=== PATIENT | female | born 1965 | race Caucasian/White ===

== ENCOUNTER 2020-02-22 14:27 | Emergency (ER) | payer OTHER, SELFPAY ==
[2020-02-22 14:28] VITALS: BP 121/99; PULSE 80; RESP 16; TEMP 37; O2SAT 97; BMI 29.0
[2020-02-22 14:31] VITALS: BP 121/99; PULSE 80; RESP 16; TEMP 37; O2SAT 97
--- NOTE | 2020-02-22 15:05 | CT_ITS ---
STUDY: CT ABDOMEN AND PELVIS WITH CONTRAST REASON FOR EXAM: Female, 54 years old. RECTAL BLEEDING TODAY, BLOOD CLOTS, NEW COUGH, FEVER. RADIATION DOSAGE (If Supplied By Facility): CTDIvol = ( 15.45 ) mGy, DLP = ( 882.32 ) mGycm TECHNIQUE: Transaxial images were obtained from the dome of the diaphragm to the symphysis pubis with oral contrast. Oral and amp; IV Gastrografin and amp; 100mL Isovue-300 was administered. Sagittal and coronal images were reconstructed. Individualized dose optimization techniques were used for this CT. COMPARISON: Prior abdomen and pelvic CT exam of 07/07/2016 FINDINGS: The visualized lung bases are unremarkable. The visualized portions of the heart are within normal limits. Normal liver. Normal gallbladder and extrahepatic biliary system. Normal spleen. Normal pancreas. Normal bilateral adrenal glands. Multiple parapelvic cysts and one cortical cyst of the right kidney stable from prior exam. Otherwise normal right kidney without hydronephrosis or stones. Multiple stable parapelvic cysts of the left kidney. Otherwise normal left kidney without hydronephrosis or stones. Normal visualized stomach. Normal small intestine. Status post right hemicolectomy with an unremarkable ileocolic anastomosis. Mild diverticulosis of the left and distal colon without evidence of acute diverticulitis. Minimal calcified plaque of the aorta. Normal inferior vena cava. Normal retroperitoneum. Normal urinary bladder. Status post hysterectomy with no pelvic mass or free fluid of the pelvis. Normal abdominal wall. Normal osseous structures. CT/Abdomen/Pelvis WITH Contrast IMPRESSION: No acute bowel findings. Negative for evidence of perforation, obstruction or inflammatory changes. Negative for mass density. She is status post a right hemicolectomy with an unremarkable ileocolic anastomosis. Mild diverticulosis of the left and distal colon. Otherwise, no identified bleeding site. Status post hysterectomy with no pelvic mass or free fluid. Stable cortical and simple renal cysts. No acute renal or bladder findings. Unremarkable liver, spleen and pancreas with a nondistended gallbladder. Electronically Signed: Sara Lau MD at 17:00 EST , Service support ,
--- NOTE | 2020-02-22 15:08 | ED.DCSUM_ITS ---
- ER Visit Summary Date of Service: 02/22/20 Chief Complaint: Rectal bleeding History of Present Illness: The patient is a 54 F who presents with rectal bleeding that began today. Patient states she had 3 bowel movements today. Patient states there was blood mixed with the first 2. Patient states the third bowel movement was just blood. Patient does admit to some pain with her bowel movements. Patient states the blood was red. Patient admits to nausea but denies any vomiting. Patient admits to some diffuse cramping abdominal pain. Patient states this waxes and wanes. Patient denies any dysuria or hematuria. Patient does have a history of colon cancer and diverticulitis. Physical Examination: Vital signs are stable. Patient is afebrile. Patient is in no acute distress. Oral mucosa is pink and moist. Neck is supple. Trachea is midline. There is no JVD noted. Heart was regular rate and rhythm. Lungs are clear and equal bilaterally. Abdomen is soft. Bowel sounds are normal. There is no tenderness. There is no rebound or guarding noted. Rectal exam radames wed good sphincter tone. There is brown stool. There is some tenderness on rectal exam. There are no masses palpated. Skin is warm dry. Cranial nerves II through XII are intact. There are no focal motor or sensory deficits noted. Extremities are intact. There is no calf tenderness or edema. Test Results: CBC shows normal hemoglobin and hematocrit. Comprehensive metab olic profile was within normal limits. Lipase was normal. Stool was Hemoccult positive. CT scan of the abdomen pelvis was obtained and shows no acute process. There are no masses palpated. There is some mild diverticulosis of the distal colon. There is no bleeding site identified. This was interpreted by the radiologist and reviewed by myself.. Emergency Department Course and Treatment: Patient is feeling better on reevaluation. Patient was advised of her findings. Patient was advised that this may be internal hemorrhoids due to the tenderness on her rectal exam. Patient was given a prescription for Anusol HC suppositories. Patient was instructed to follow-up with her primary care physician in 5 to 7 days. Patient understood and was agreeable with the plan. All questions were answered. Disposition: Discharge home Impression: 1. Lower gastrointestinal bleeding This note was generated with [employer] dictation software. It may contain incorrect words, spelling, and punctuation that were not noted in review of the chart prior to signing ED Disposition - Plan for ED Patient: Disposition: Home or Assisted Living Diagnosis: Lower gastrointestinal bleeding Instructions: ED Hemorrhoids, ED Lower GI Bleeding (Stable) Prescriptions: Hydrocortisone [Anusol Hc] 25 mg RECTAL DAILY PRN PRN #10 suppos. PRN Reason: Hemorrhoids Prescription Printed Referrals: Care Physician,No Primary [NON-STAFF] - 3-5 Days
[2020-02-22] MEDS: 0.9% Normal Saline 1,000 ML 1000 ML IV (15:24)
[2020-02-22] MEDS: Ondansetron 4 MG/2 ML Vial IV (15:24)
[2020-02-22 15:40] LABS: Absolute Neutrophil Count 2.8 X10^3/uL (2.0-7.7); Basophil# 0.02 X10^3/uL; Basophil% 0.5 % (0-1); Eosinophil# 0.04 X10^3/uL; Eosinophils% 0.9 % (0-5); Hematocrit 42.8 % (37-47); Hemoglobin 13.9 g/dL (12.0-15.0); Lymphocyte % 20.9 % (19-41); Mean Corp Hgb Conc 32.5 g/dL (32-36); Mean Corpuscular Hgb 31.5 pg (27.0-32.0); Mean Corpuscular Volume 97.1 fL (81-99); Mean Platelet Vol. 10.2 fl (6.2-12.0); Monocyte# 0.56 X10^3/uL; NRBC Flagged by Analyzer 0 % (0-5); Neutrophil # 2.78 X10^3/uL (2.7-7.7); Neutrophil % 64.5 % (47-70); Platelet Count 219 K/mm3 (150-450); RBC Distribution Width CV 12.8 % (11.6-14.6); RBC Distribution Width SD 45.7 fl (35.1-43.9); Red Blood Count 4.41 M/mm3 (4.2-5.4); White Blood Count 4.3 K/mm3 (4.4-11.0)
[2020-02-22 15:49] VITALS: BP 152/93; PULSE 60; RESP 18; TEMP 36.2; O2SAT 99
[2020-02-22 15:50] LABS: ALB/GLOB Ratio 1.2 RATIO (0.9-2.4); AST(SGOT) 27 U/L (15-37); Alanine Aminotransfer ALT/SGPT 42 U/L (13-56); Alkaline Phosphatase 90 U/L (45-117); Anion Gap 4 (5-15); BUN 11 mg/dL (7-18); BUN/Creat Ratio 16.3 RATIO (10-20); Chloride 110 mmol/L (98-107); Creatinine, Serum 0.67 mg/dL (0.55-1.02); EST Glomerular Filtration Rate 96 mL/min (>60); Est Glom Filt Rate - Afr Amer 116 mL/min (>60); Estimated Creatinine Clearance 70.75 ml/min; Globulin 3.3 g/dL (2.2-4.2); Glucose 88 mg/dL (74-106); Lipase 130 U/L (73-393); Protein, Total 7.3 g/dL (6.4-8.2); Sodium Level 142 mmol/L (136-145)
[2020-02-22 17:01] VITALS: BP 129/84; PULSE 63; RESP 18; TEMP 36.8; O2SAT 98
[2020-02-22 17:44] VITALS: BP 123/65; PULSE 65; RESP 15; O2SAT 100
== END 2020-02-22 17:45 | disposition home or self-care (01) ==
PROVIDERS: Emergency Provider Emergency Medicine; PCP Family Medicine
DX: K92.2 Gastrointestinal hemorrhage, unspecified (principal); K21.9 Gastro-esophageal reflux disease without esophagitis; E78.00 Pure hypercholesterolemia, unspecified; Z85.038 Personal history of other malignant neoplasm of large intestine
CPT/HCPCS: 74177; 80053; 82274; 83690; 85025; 96374; 99283; J7030; Q9967; A4216; J2405

== ENCOUNTER 2020-03-26 07:43 | Day surgery (SDC) | payer OTHER, SELFPAY ==
[2020-03-15 13:36] VITALS: BMI 28.5
--- NOTE | 2020-03-26 | COLBX_PTH ---
PATIENT: JACEY RAVI LOC: EN U#:[id number] AGE/SX: 54/F ROOM: RE03/26/[address]: Dr. Joslyn Lockhart MD : 1965 BED: DIS: 03/26/2020 SPEC #: [id number] RECD: 03/26/20 11:02 STATUS: TESS JITENDRA #: [id number] BLANCA: 03/26/20 00:[address]: Joslyn Lockhart DEPT: SURGICAL PATHOLOGY RECD BY: Fidel Durbin ENTERED: 03/26/20 11:02 SP TYPE: COLON BX OTHR DR: Dr. Janny Durbin DO Tissues: COLON BIOPSY Procedures: Surgery Specimen Level IV HEADER OPERATION: Colonoscopy (MAC) PRE-OP DIAGNOSIS: Bright red blood per rectum; history of colon cancer; history of partial colectomy; GERD TISSUE SUBMITTED: Random colonic biopsies MICROSCOPIC DIAGNOSIS Colon, random biopsy: No pathologic change. AM:manoj 03/27/2020 MICROSCOPIC DESCRIPTION Slides are reviewed. GROSS DESCRIPTION Received in fixative is one container labeled with the patient's name and designated random colon biopsy. The specimen consists of multiple irregular fragments of light tse soft tissue that in aggregate measure 2 x 1 x 0.1 cm. The specimen is totally submitted in one cassette. / AM:manoj 03/26/20 TC:5 CPT: 53254
--- NOTE | 2020-03-26 06:00 | HP_ITS ---
ADDENDUM by Dr. Joslyn Lockhart MD on 03/15/20 at 1437 Addendum entered and electronically signed by Joslyn Lockhart MD 03/15/20 14:36: COVID (Procedure Consent) Procedure Criteria: Yes Elective The surgeon/proceduralist and patient have discussed in detail the risk of exposure to and/or potential harm posed by the COVID-19 virus with having a surgery/procedure at this time versus the risk of delaying the surgery/procedure. It is not possible to know either the risk of delaying the surgery or procedure or chance of getting an infection with perfect accuracy, but a joint decision was made between the patient and the surgeon/proceduralist to proceed at this time with the scheduled surgery/procedure as indicated on the consent form. Intake Allergies acetaminophen [From Darvocet-N 100] Allergy (Verified 03/15/20 13:37) Itching hydrocodone Allergy (Verified 03/15/20 13:37) Itching latex Allergy (Verified 03/15/20 13:37) Hives meperidine [From Demerol] Allergy (Verified 03/15/20 13:37) Itching morphine Allergy (Verified 03/15/20 13:37) Itching oxycodone [From Percocet] Allergy (Verified 03/15/20 13:37) Itching Penicillins Allergy (Verified 03/15/20 13:37) Itching propoxyphene [From Darvocet-N 100] Allergy (Verified 03/15/20 13:37) Itching vancomycin Allergy (Verified 03/15/20 13:37) Other Medications Pantoprazole Sodium [Protonix] 20 mg PO DAILY 07/07/16 [History Confirmed 03/15/20] Hydrocortisone [Anusol Hc] 25 mg RECTAL DAILY PRN PRN #10 suppos. 02/22/20 [Rx Confirmed 03/15/20] Lorazepam 0.5 mg PO DAILY PRN 02/22/20 [History Confirmed 03/15/20] Pravastatin Sodium 40 mg PO DAILY 02/22/20 [History Confirmed 03/15/20] bupropion HCl 150 mg 24 hr tablet, extended release 150 mg PO ONCE tab 03/15/20 [History Confirmed 03/15/20] Assessment & Plan Problems 1. BRBPR (bright red blood per rectum) K62.5 2. History of colon cancer Z85.038 3. History of partial colectomy Z90.49 4. Gastroesophageal reflux disease K21.9 Plan - Dr. Joslyn Lockhart MD Patient states she had an EGD about 5 years ago prior to going on reflux medication states she been on Protonix for about a year and a half 40 mg p.o. daily is working well for her she denies any symptoms. I have discussed the above with the patient. I have offered the patient colonoscopy for evaluation. I have explained the risks/benefits of the procedure and described the procedure. I have discussed the risks with the patient, including but not limited to: infection, bleeding, perforation of the GI tract requiring emergency surgery, inability to complete the procedure, injury to any internal organs, complications of anesthesia, etc. - the patient understands and agrees to proceed. I have answered all the patient's questions to the patient's satisfaction and the patient has no further questions. The patient has been given instructions for the colon cleansing preparation. 1 day of clears, MiraLAX Dulcolax split prep. Joslyn Lockhart M.D. Pager: [phone] [facility] [address] [place] [address], [address] [place] [address] Office: [phone] Orders Orders: Colonoscopy Today Plan Detail Follow Up We will schedule colonoscopy for March 21 03/15/20 [id number] <Electronically signed by Joslyn Teran am, MD> Date _ Joslyn Lockhart MD cc: Dr. Janny Durbin, DO ~* Signed Intake Vital Signs 03/15/20 Height 5 ft 1 in 03/15/20 Weight: 151 lb 03/15/20 BMI 28.5 03/15/20 BP 116/80 03/15/20 Blood Pressure Location Rt brachial 03/15/20 Position Sitting 03/15/20 Respiration 16 03/15/20 Pulse 59 L 03/15/20 Pulse Source Monitor 03/15/20 Temp 97.9 F 03/15/20 Temp Source Temporal 03/15/20 Pulse Oximetry (%) 97 03/15/20 Oxygen Delivery Method room air Intake Visit Reasons: C-Scope Consult rectal bleeding Night Custodian Required: No Is patient in pain?: No Allergies acetaminophen [From Darvocet-N 100] Allergy (Verified 03/15/20 13:37) Itching hydrocodone Allergy (Verified 03/15/20 13:37) Itching latex Allergy (Verified 03/15/20 13:37) Hives meperidine [From Demerol] Allergy (Verified 03/15/20 13:37) Itching morphine Allergy (Verified 03/15/20 13:37) Itching oxycodone [From Percocet] Allergy (Verified 03/15/20 13:37) Itching Penicillins Allergy (Verified 03/15/20 13:37) Itching propoxyphene [From Darvocet-N 100] Allergy (Verified 03/15/20 13:37) Itching vancomycin Allergy (Verified 03/15/20 13:37) Other Medications Pantoprazole Sodium [Protonix] 20 mg PO DAILY 07/07/16 [History Confirmed 03/15/20] Hydrocortisone [Anusol Hc] 25 mg RECTAL DAILY PRN PRN #10 suppos. 02/22/20 [Rx Confirmed 03/15/20] Lorazepam 0.5 mg PO DAILY PRN 02/22/20 [History Confirmed 03/15/20] Pravastatin Sodium 40 mg PO DAILY 02/22/20 [History Confirmed 03/15/20] bupropion HCl 150 mg 24 hr tablet, extended release 150 mg PO ONCE tab 03/15/20 [History Confirmed 03/15/20] [facility] Medical History (Updated 03/15/20 @ 13:35 by Glendy Ennis) Pancreatitis (Acute) Blood in stool (Acute) Abdominal pain (Acute) Heart murmur (Acute) Numbness and tingling (Acute) Arthritis (Acute) Hemorrhoids (Acute) Diverticulosis (Acute) Diarrhea (Acute) IBS (irritable bowel syndrome) (Acute) Hiatal hernia (Acute) History of colon cancer (Acute) Hyperlipidemia (Acute) Anxiety (Acute) GERD (gastroesophageal reflux disease) (Acute) Surgical History (Updated 03/15/20 @ 13:35 by Glendy Ennis) History of surgery on wrist (Acute) Hx of shoulder surgery (Acute) Hx of thumb surgery (Acute) Hx of colonoscopy (Acute) Hx of fusion of cervical spine (Acute) History of partial colectomy (Acute) Hx of hysterectomy (Acute) Family History Father Colon cancer Social History (Updated 03/15/20 @ 13:[address] Joslyn Lockhart MD) Smoking Status: Current some day smoker second hand exposure: No alcohol intake: current alcohol intake frequency: a few times a month substance use type: does not use caffeine: Yes what type of physical activity do you participate in: none frequency: does not exercise HPI HPI HPI: JACEY RAVI, is a 54 F who presents to the office today for HPI HPI HPI: JACEY RAVI, is a 54 F who presents to the office today for colonoscopy due to bright red blood per rectum. Patient does have past medical history for right hemicolectomy due to colon cancer at age 44 done in [place]. Patient states her last colonoscopy was about a year ago at [facility] by Dr. Hong however on patient came to the ER due to bright red blood per rectum states she had about half a cup initially and then 3 tablespoons of blood the next episode which did include some clots. Patient states since then she is only had occasional small amounts maybe 1 or 2 episodes. Patient denies any abdominal pain or any pain with bowel movements. Patient does have IBS and has diarrhea daily. Patient will take Imodium as needed. Patient does have history of reflux and is on Protonix 40 mg p.o. daily has no signs or symptoms when on medication she has been on it for about a 1-1/2 years and had an EGD about 5 years ago prior to starting medication. ROS General General: Yes colon cancer; no weight change, appetite, fatigue, breast cancer or weakness HEENT HEENT: No difficulty swallowing, eye injury, eye surgery, swollen glands or hoarseness Endo Endocrine: No thyroid disease, diabetes mellitus, thyroid cancer, Hair loss, heat intolerance or cold intolerance Skin Skin: Yes changing moles; no rash Musc Musculoskeletal: Yes arthritis; no back problems, rheumatoid arthritis, gout or joint pain Cardio Cardiovascular: Yes high blood pressure; no pacemaker, heart disease, atrial fibrillation, heart attack, heart stent, palpitations, shortness of breat with exertion or chest pain Psych Psychiatric: Yes anxiety; no depression or hearing voices Neuro Neurologic: No weakness Exam Const General: cooperative, comfortable, no acute distress, well developed Resp Effort & Inspection: normal respiratory effort Cardio Rate: regular rate GI Inspection: non-distended, scar (Previous incisions from laparoscopic right hemicolectomy well-healed) Palpation: soft, no guarding, nontender Rectal Exam: other (Deferred) Assessment & Plan Problems 1. BRBPR (bright red blood per rectum) K62.5 2. History of colon cancer Z85.038 3. History of partial colectomy Z90.49 4. Gastroesophageal reflux disease K21.9 Plan Patient states she had an EGD about 5 years ago prior to going on reflux medication states she been on Protonix for about a year and a half 40 mg p.o. daily is working well for her she denies any symptoms. I have discussed the above with the patient. I have offered the patient colonoscopy for evaluation. I have explained the risks/benefits of the procedure and described the procedure. I have discussed the risks with the patient, including but not limited to: infection, bleeding, perforation of the GI tract requiring emergency surgery, inability to complete the procedure, injury to any internal organs, complications of anesthesia, etc. - the patient understands and agrees to proceed. I have answered all the patient's questions to the patient's satisfaction and the patient has no further questions. The patient has been given instructions for the colon cleansing preparation. 1 day of clears, MiraLAX Dulcolax split prep. Joslyn Lockhart M.D. Pager: [phone] [facility] [address] [place] [address], [address] [place] [address] Office: [phone] Orders Orders: Colonoscopy Today Plan Detail Follow Up We will schedule colonoscopy for March 21 Coding Level of Care Code Off vis,new,level 3 Diagnoses BRBPR (bright red blood per rectum) K62.5 History of colon cancer Z85.038 History of partial colectomy Z90.49 Gastroesophageal reflux disease K21.9 I have examined the patient the following changes are noted: Patient did have some bright red blood on the toilet paper and some in the toilet on last it did improve. Since then patient has not had any further episodes. Patient does state that she is had at one time diarrhea for about a month and that usually her stools not formed and quite loose she would be interested in getting random biopsies to look for any possible colitis.
[2020-03-26 08:05] VITALS: BP 137/72; PULSE 72; RESP 16; TEMP 36.6; O2SAT 98; BMI 28.3
[2020-03-26 09:10] VITALS: BP 118/74; BP 137/72; PULSE 64; RESP 16; TEMP 36.4; O2SAT 99
[2020-03-26 09:15] VITALS: BP 130/70; BP 137/72; PULSE 62; RESP 16; O2SAT 98
--- NOTE | 2020-03-26 09:18 | OP.CCLET_ITS ---
03/26/2020 Janny Durbin Re : Colonoscopy procedure for Barbara Barnesr Ramakrishna This procedure was performed on Thursday, March 26, 2020. My impressions and recommendations are as follows: Impressions : - Hemorrhoids found on perianal exam. - Diverticulosis in the sigmoid colon. - Non-bleeding internal hemorrhoids. - Biopsies were taken with a cold forceps from the transverse colon, descending colon, sigmoid colon and rectum for evaluation of microscopic colitis. Recommendations : - Discharge patient to home. - High fiber diet. - Continue present medications. - Await pathology results. - Repeat colonoscopy in 5 years for surveillance based on personal history of colon cancer. My findings are described in the full procedure note, which is enclosed. If I can be of further assistance, please feel free to contact me at Doctor phone number(s): , Work: . Sincerely, MD Joslyn Dupont MD 03/26/2020 9:17:24 AM This report has been signed electronically.
--- NOTE | 2020-03-26 09:18 | OP.COLON_ITS ---
Patient Name: Barbara Bingham Procedure Date: 03/26/2020 8:33 AM Date of : 1965 Age: 54 Procedure: Colonoscopy Indications: Rectal bleeding, Personal history of malignant neoplasm of the colon, Previous bx for collagenous colitis- not tx, still has loose stools Providers: Joslyn Lockhart MD Referring MD: Janny Durbin Medicines: Monitored Anesthesia Care Patient Profile: This is a 54 year old female. Last Colonoscopy: 2018. Complications: No immediate complications. Procedure: Pre-Anesthesia Assessment: - Prior to the procedure, a History and Physical was performed, and patient medications and allergies were reviewed. The patient's tolerance of previous anesthesia was also reviewed. The risks and benefits of the procedure and the sedation options and risks were discussed with the patient. All questions were answered, and informed consent was obtained. Prior Anticoagulants: The patient has taken no previous anticoagulant or antiplatelet agents. ASA Grade Assessment: Per anesthesia. After reviewing the risks and benefits, the patient was deemed in satisfactory condition to undergo the procedure. After I obtained informed consent, the scope was passed under direct vision. Throughout the procedure, the patient's blood pressure, pulse, and oxygen saturations were monitored continuously. The pediatric colonoscope was introduced through the anus and advanced to the ileocolonic anastomosis. The colonoscopy was performed without difficulty. The patient tolerated the procedure well. The quality of the bowel preparation was good. Scope In: 8:47:41 AM Scope Withdrawal Time 0 hours 10 minutes 4 seconds Scope Out: 9:03:49 AM Total Procedure Duration Time 0 hours 16 minutes 8 seconds Findings: Hemorrhoids were found on perianal exam. A few small-mouthed diverticula were found in the sigmoid colon. Non-bleeding internal hemorrhoids were found. The hemorrhoids were Grade I (internal hemorrhoids that do not prolapse). Biopsies for histology were taken with a cold forceps from the transverse colon, descending colon, sigmoid colon and rectum for evaluation of microscopic colitis. Impression: - Hemorrhoids found on perianal exam. - Diverticulosis in the sigmoid colon. - Non-bleeding internal hemorrhoids. - Biopsies were taken with a cold forceps from the transverse colon, descending colon, sigmoid colon and rectum for evaluation of microscopic colitis. Recommendation: - Discharge patient to home. - High fiber diet. - Continue present medications. - Await pathology results. - Repeat colonoscopy in 5 years for surveillance based on personal history of colon cancer. Procedure Code(s): --- Professional --- 36264, Colonoscopy, flexible; with biopsy, single or multiple Diagnosis Code(s): --- Professional --- K64.0, First degree hemorrhoids K62.5, Hemorrhage of anus and rectum Z85.038, Personal history of other malignant neoplasm of large intestine K57.30, Diverticulosis of large intestine without perforation or abscess without bleeding CPT copyright 2017 [employer]. All rights reserved. The codes documented in this report are preliminary and upon twx operator review may be revised to meet current compliance requirements. MD Joslyn Dupont MD 03/26/2020 9:17:24 AM This report has been signed electronically. Number of Addenda: 0 Note Initiated On: 03/26/2020 8:33 AM
[2020-03-26 09:20] VITALS: BP 117/72; BP 137/72; PULSE 65; RESP 16; O2SAT 99
[2020-03-26 09:25] VITALS: BP 113/83; BP 137/72; PULSE 63; RESP 16; TEMP 36.4; O2SAT 100
[2020-03-26 09:43] VITALS: BP 137/72
== END 2020-03-26 10:03 | disposition home or self-care (01) ==
LOC: EN 07:43 → AC 07:43
PROVIDERS: PCP Family Medicine; Referring Provider Family Medicine; Visit Provider Surgery
PROC: 0DJD8ZZ Inspection of Lower Intestinal Tract, Via Natural or Artificial Opening Endoscopic (ICD-10-PCS; CPT 45378; principal; 2020-03-26 08:40)
DX: K62.9 Disease of anus and rectum, unspecified (principal); K21.9 Gastro-esophageal reflux disease without esophagitis; M19.90 Unspecified osteoarthritis, unspecified site; K58.0 Irritable bowel syndrome with diarrhea; K44.9 Diaphragmatic hernia without obstruction or gangrene; E78.5 Hyperlipidemia, unspecified; F41.9 Anxiety disorder, unspecified; Z79.899 Other long term (current) drug therapy; Z20.828 Contact with and (suspected) exposure to other viral communicable diseases; Z85.038 Personal history of other malignant neoplasm of large intestine; Z90.49 Acquired absence of other specified parts of digestive tract; K64.0 First degree hemorrhoids; K57.30 Diverticulosis of large intestine without perforation or abscess without bleeding; Z87.891 Personal history of nicotine dependence
CPT/HCPCS: 45380; 87426; 88305; C9803; J7120

== ENCOUNTER 2022-04-16 07:07 | Day surgery (SDC) | payer OTHER, SELFPAY ==
[2022-04-16] VITALS (9 sets, daily range): BP systolic 75–111; BP diastolic 39–75; PULSE 64–80; RESP 15–16; TEMP 36.4–37; O2SAT 94–99; BMI 28.6
[2022-04-16] MEDS: Lactated Ringers 1,000 ML 15 ML IV (07:33)
--- NOTE | 2022-04-16 07:58 | H&P.OPEN ---
HPI - General HPI Narrative JACEY RAVI, is a 56 F who presents for EGD and colonoscopy. Patient's colonoscopy due to abdominal pain/discomfort after eating, occasional bright red blood per rectum, personal history of colon cancer age 44 status post right hemicolectomy. Patient also has reflux on Protonix daily and again is having abdominal discomfort after eating patient states that the medication works fairly well however she will notice if she misses it. OFFice note 03/13/22 HPI HPI: 56 y/o presents due to change bowel habits.? Pt states she has loose BM after eating and has some abdominal discomfort prior.? Pt also still has occasional BRBPR.? Last colonoscopy was 2 years ago- no polyps recommend f/u in 5 year due to personal hx of colon cancer at 44 y/o s/p right domingo.? Pt has been on protonix daily and last EGD was about 7 years ago.? Due to about discomfort ---pt is interested in having EGD and colonoscopy. [facility] Medical History (Updated 04/10/22 @ 15:38 by Cheri Brown) Abdominal pain Alcohol use Anxiety Arthritis Back pain Blood in stool Cancer Diarrhea Diverticulosis Easy bruising Excessive bleeding Former smoker Gastric reflux GERD (gastroesophageal reflux disease) Heart murmur Hemorrhoids Hiatal hernia High cholesterol History of broken collarbone History of colon cancer History of stress test Hyperlipidemia IBS (irritable bowel syndrome) Injury of head and neck Numbness and tingling Pancreatitis Post-menopausal Wears glasses Home Medications pantoprazole 20 mg tablet,delayed release 40 mg PO DAILY 07/07/16 [History Last Taken 03/26/20] lorazepam 0.5 mg tablet 0.5 mg PO DAILY PRN Anxiety 02/22/20 [History Last Taken Unknown] bupropion HCl 150 mg 24 hr tablet, extended release 150 mg PO DAILY 03/15/20 [History Last Taken Unknown] Hydrocortisone 2.5%/lidocaine 5% suppository (cmpd) (hydrocortisone 2.5%/lidocaine 5% suppository (compound)) #30 supp 05/15/20 [Rx Last Taken Unknown] rosuvastatin 20 mg tablet 20 mg PO QHS 03/13/22 [History Last Taken Unknown] dicyclomine 20 mg tablet See Rx Instructions .Route .COMPLEX #30 tabs 04/08/22 [Rx Last Taken Unknown] ashwagandha extract 120 mg capsule 120 mg PO DAILY 04/10/22 [History Last Taken Unknown] cyanocobalamin (vitamin B-12) 100 mcg tablet (Vitamin B-12) 100 mcg PO DAILY 04/10/22 [History Last Taken Unknown] ykldybpz-dor-cxtma ac 400 mcg-calcium carb 500 mg-vit K1 20 mcg tablet (Women's 50 Plus Daily Formula) 1 tab PO DAILY 04/10/22 [History Last Taken Unknown] Allergy/AdvReac Type Severity Reaction Status Date / Time acetaminophen Allergy Itching Verified 04/16/22 07:28 [From Darvocet-N 100] hydrocodone Allergy Itching Verified 04/16/22 07:28 latex Allergy Hives Verified 04/16/22 07:28 meperidine [From Demerol] Allergy Itching Verified 04/16/22 07:28 morphine Allergy Itching Verified 04/16/22 07:28 oxycodone [From Percocet] Allergy Itching Verified 04/16/22 07:28 Penicillins Allergy Itching Verified 04/16/22 07:28 propoxyphene Allergy Itching Verified 04/16/22 07:28 [From Darvocet-N 100] tramadol Allergy Itching Verified 04/16/22 07:28 vancomycin Allergy Other Verified 04/16/22 07:28 Family History Father Colon cancer Surgical History (Updated 04/10/22 @ 15:38 by Cheri Brown) History of partial colectomy History of surgery on wrist Hx of colonoscopy Hx of fusion of cervical spine Hx of hysterectomy Hx of shoulder surgery Hx of thumb surgery Social History Smoking Status: Former smoker second hand exposure: No alcohol intake: current alcohol intake frequency: a few times a month substance use type: does not use caffeine: Yes what type of physical activity do you participate in: none frequency: does not exercise Past Medical/Surgical History Planned Operation Planned Operative Procedure/s: COLONOSCOPY/EGD S.O.S: No Previous Hospitalizations/Surgeries HX Hospitalizations: No HX of Surgeries: hysterectomy bowel resection for cancer vascular port/removed cervical fusion right shoulder rtc repair right wrist orif left hand thumb tendon repair fx collarbone several cscope egd Any Problems With Anesthesia: No You/Your Family Experience Fever (Hyperthermia) With Anes: No Cholinesterase deficiency: No Cardiovascular Hx Chest Pain within Last 2 months: No Hx of Irregular Heartbeat and/or Afib: No (flutter at times with anxiety) Hx Heart Attack: No Hx Congestive Heart Failure: No Hx Rheumatic Fever: No Hx Hypertension: No Hx Internal Defibrillator: No Hx Pacemaker: No Hx Cardiac Catheterization: No Hx Cardiac Surgery/Stents/Etc.: No Hx Stress Test: Yes (over 10 yrs ago) Hx Pain in Legs when Walking/Leg Cramps: No Respiratory Chronic Cough: No HX of Shortness of Breath: No Hoarseness: No Hx Chronic Obstructive Pulmonary Disease (COPD): No Hx Asthma: No Hx Emphysema: No Hx Sleep Apnea: No Hx Respiratory Tract Infection/Cold (presently): No Do You Snore Loudly (louder than talking or can be heard): No Do You Often Feel Tired/ Fatigued/ Sleepy Dring Daytime?: No Has Anyone Observed You Stop Breathing During Sleep?: No Result (for STOP score): Negative Hx Smoking: Yes (quit 6 yrs ago) Smoking Status: Former smoker Gastrointestinal Hx Gastroesophageal Reflux: Yes Controlled With Meds: Yes Hx Gastrointestinal Disorders: Yes (hx colectomy for cancer) Hx Gastrointestinal Bleed: No Hx Ulcer: Yes (as child) Hx Hiatal Hernia: No Difficulty Chewing/Swallowing: No Special diet followed at home: No Hx Unplanned Weight Loss of 20#: No HX Unplanned Weight Gain of 20#: No Neurological Hx Seizures: No HX Syncope/Blackout Spells/Unconsciousness: No Hx Transient Ischemic Attacks (TIA): No Hx Multiple Sclerosis: No Hx Parkinson's Disease: No Hx Head/Neck Injury: Yes (hx of cervical fusion/denies limited rom) Hx Headaches: No Hx Back Injury/Pain: No Recent Onset of Speech Difficulty: No Restless Legs: No Does patient have nerve stimulator: No Blood Disorder Hx Leukemia: No Bleeding Tendencies: Yes (bleeds easily) Hx Deep Vein Thrombosis: No Hx High Cholesterol: Yes (on med) Blood Transmitted Disease: No Hx Hepatitis: No Hx Cirrhosis: No Hx Anemia: Yes (in the past) Hx Blood Disorders: No Reproduction Is Patient Lactating: No Hx Hysterectomy: Yes Hx Tubal Ligation: No Are You Post Menopause: Yes Genitourinary Hx Renal Disease: No Musculoskeletal Hx Arthritis: Yes Hx Rheumatoid Arthritis: No Hx Gout: No Recent Onset of an Orthopedic Problem: No Endocrine Hx Diabetes: No Thyroid Disease: No Hx Steroid Therapy: No Psycho/Social Hx Substance Use: No Hx Alcohol Use: Yes (social) Hx Anxiety: Yes (prn med) Hx Depression: No Mental Illness: No Hx Dementia: No Miscellaneous Hx Cancer: Yes (Colon CA/chemo) Recent Exposure to Contagious Disease: No Hx of C-Diff: No Any Loose Teeth: No Allergies acetaminophen [From Darvocet-N 100] Allergy (Verified 04/16/22 07:28) Itching hydrocodone Allergy (Verified 04/16/22 07:28) Itching latex Allergy (Verified 04/16/22 07:28) Hives meperidine [From Demerol] Allergy (Verified 04/16/22 07:28) Itching morphine Allergy (Verified 04/16/22 07:28) Itching oxycodone [From Percocet] Allergy (Verified 04/16/22 07:28) Itching Penicillins Allergy (Verified 04/16/22 07:28) Itching propoxyphene [From Darvocet-N 100] Allergy (Verified 04/16/22 07:28) Itching tramadol Allergy (Verified 04/16/22 07:28) Itching vancomycin Allergy (Verified 04/16/22 07:28) Other Discharge Is Pt Admitted From a Penitentiary, or a Correction: No After D/C, Where Do you Plan to Go: Return Home Vital Signs Vital Signs Vital Signs: 04/16/22 07:29 04/16/22 07:29 Temperature 98.6 F Temperature Source Temporal Pulse Rate 76 Respiratory Rate 16 Respiratory Pattern Normal Blood Pressure 111/75 Blood Pressure Mean 87 Blood Pressure Source Monitor Blood Pressure Position Sitting Blood Pressure Location Left Arm Pulse Ox 99 Oxygen Delivery Method Room Air Weight Weight: 151 lb 10.848 oz Body Mass Index (BMI) 28.6 Physical Exam Const alert, oriented x3 and no apparent distress HEENT normocephalic and head/scalp atraumatic Resp normal respiratory effort Cardio regular rate GI soft to palpation and non-tender; Negative for non-distended Palpation: Negative for guarding Extremity no clubbing, cyanosis or edema Neuro CN's II-XII intact bilaterally Psych mental status grossly normal Assessment & Plan Assessment/Plan (1) Change in bowel habit: (2) Blood in stool: (3) Abdominal pain: (4) History of colon cancer: PLAN: Status post right hemicolectomy at age 44. Surgery Risks - Colonoscopy Risks Include but are not Limited To: Risks include but are not limited to: Bleeding, perforation requiring further surgery, inability to complete colonoscopy requiring barium enema.
--- NOTE | 2022-04-16 08:48 | OP.EGD_ITS ---
Patient Name: Barbara Bingham Procedure Date: 04/16/2022 8:06 AM Date of : 1965 Age: 56 Procedure: Upper GI endoscopy Indications: Abdominal pain, Heartburn Providers: Joslyn Lockhart MD Referring MD: Janny Durbin Medicines: Monitored Anesthesia Care Patient Profile: This is a 56 year old female. Complications: No immediate complications. Procedure: Pre-Anesthesia Assessment: - Prior to the procedure, a History and Physical was performed, and patient medications and allergies were reviewed. The patient's tolerance of previous anesthesia was also reviewed. The risks and benefits of the procedure and the sedation options and risks were discussed with the patient. All questions were answered, and informed consent was obtained. Prior Anticoagulants: The patient has taken no previous anticoagulant or antiplatelet agents. ASA Grade Assessment: Per anesthesia. After reviewing the risks and benefits, the patient was deemed in satisfactory condition to undergo the procedure. After obtaining informed consent, the endoscope was passed under direct vision. Throughout the procedure, the patient's blood pressure, pulse, and oxygen saturations were monitored continuously. The pediatric colonoscope was introduced through the mouth, and advanced to the second part of duodenum. The upper GI endoscopy was accomplished without difficulty. The patient tolerated the procedure well. Scope In: 8:15:14 AM Scope Out: 8:21:35 AM Total Procedure Duration Time 0 hours 6 minutes 21 seconds Findings: The Z-line was variable and was found 41 cm from the incisors. Biopsies were taken with a cold forceps for histology. Mildly erythematous mucosa without bleeding was found in the gastric antrum. Biopsies were taken with a cold forceps for histology. Biopsies were taken with a cold forceps for Helicobacter pylori cultures. The examined duodenum was normal. The cardia and gastric fundus were normal on retroflexion. Impression: - Z-line variable, 41 cm from the incisors. Biopsied. - Erythematous mucosa in the antrum. Biopsied. - Normal examined duodenum. Recommendation: - Await pathology results. - Discharge patient to home. - Resume previous diet. - Continue present medications. - Use sucralfate tablets 1 gram PO QID for 2 weeks. Procedure Code(s): --- Professional --- 83210, PT, Esophagogastroduodenoscopy, flexible, transoral; with biopsy, single or multiple Diagnosis Code(s): --- Professional --- K22.8, Other specified diseases of esophagus K31.89, Other diseases of stomach and duodenum R10.9, Unspecified abdominal pain R12, Heartburn CPT copyright 2017 [employer]. All rights reserved. The codes documented in this report are preliminary and upon health information coder review may be revised to meet current compliance requirements. MD Joslyn Dupont MD 04/16/2022 8:47:40 AM This report has been signed electronically. Number of Addenda: 0 Note Initiated On: 04/16/2022 8:06 AM
--- NOTE | 2022-04-16 08:48 | OP.CCLET_ITS ---
04/16/2022 Janny Durbin Re : Upper GI endoscopy procedure for Barbara Barnesr Ramakrishna This procedure was performed on Saturday, April 16, 2022. My impressions and recommendations are as follows: Impressions : - Z-line variable, 41 cm from the incisors. Biopsied. - Erythematous mucosa in the antrum. Biopsied. - Normal examined duodenum. Recommendations : - Await pathology results. - Discharge patient to home. - Resume previous diet. - Continue present medications. - Use sucralfate tablets 1 gram PO QID for 2 weeks. My findings are described in the full procedure note, which is enclosed. If I can be of further assistance, please feel free to contact me at Doctor phone number(s): , Work: . Sincerely, MD Joslyn Dupont MD 04/16/2022 8:47:40 AM This report has been signed electronically.
--- NOTE | 2022-04-16 08:53 | OP.CCLET_ITS ---
04/16/2022 Janny Durbin Re : Colonoscopy procedure for Barbara Bingham Dear Ramakrishna This procedure was performed on Saturday, April 16, 2022. My impressions and recommendations are as follows: Impressions : - Hemorrhoids found on perianal exam. - Non-bleeding internal hemorrhoids. - Diverticulosis in the sigmoid colon. - The examination was otherwise normal. - No specimens collected. Recommendations : - Discharge patient to home. - Resume previous diet. - Continue present medications. - Repeat colonoscopy in 5 years for surveillance. My findings are described in the full procedure note, which is enclosed. If I can be of further assistance, please feel free to contact me at Doctor phone number(s): , Work: . Sincerely, MD Joslyn Dupont MD 04/16/2022 8:52:38 AM This report has been signed electronically.
--- NOTE | 2022-04-16 08:53 | OP.COLON_ITS ---
Patient Name: Barbara Bingham Procedure Date: 04/16/2022 8:21 AM Date of : 1965 Age: 56 Procedure: Colonoscopy Indications: High risk colon cancer surveillance: Personal history of colon cancer, Incidental - Abdominal pain, Incidental - Rectal bleeding Providers: Joslyn Lockhart MD Referring MD: Janny Durbin Medicines: Monitored Anesthesia Care Patient Profile: This is a 56 year old female. Last Colonoscopy: 2 years. Complications: No immediate complications. Procedure: Pre-Anesthesia Assessment: - Prior to the procedure, a History and Physical was performed, and patient medications and allergies were reviewed. The patient's tolerance of previous anesthesia was also reviewed. The risks and benefits of the procedure and the sedation options and risks were discussed with the patient. All questions were answered, and informed consent was obtained. Prior Anticoagulants: The patient has taken no previous anticoagulant or antiplatelet agents. ASA Grade Assessment: Per anesthesia. After reviewing the risks and benefits, the patient was deemed in satisfactory condition to undergo the procedure. After I obtained informed consent, the scope was passed under direct vision. Throughout the procedure, the patient's blood pressure, pulse, and oxygen saturations were monitored continuously. The pediatric colonoscope was introduced through the anus and advanced to the ileocolonic anastomosis. The colonoscopy was performed without difficulty. The patient tolerated the procedure well. The quality of the bowel preparation was good. Scope In: 8:22:35 AM Scope Withdrawal Time 0 hours 5 minutes 22 seconds Scope Out: 8:40:20 AM Total Procedure Duration Time 0 hours 17 minutes 45 seconds Findings: Hemorrhoids were found on perianal exam. Non-bleeding internal hemorrhoids were found. The hemorrhoids were Grade I (internal hemorrhoids that do not prolapse). A few small-mouthed diverticula were found in the sigmoid colon. The exam was otherwise without abnormality. Ileocolonic anastomosis widely patent. Impression: - Hemorrhoids found on perianal exam. - Non-bleeding internal hemorrhoids. - Diverticulosis in the sigmoid colon. - The examination was otherwise normal. - No specimens collected. Recommendation: - Discharge patient to home. - Resume previous diet. - Continue present medications. - Repeat colonoscopy in 5 years for surveillance. Procedure Code(s): --- Professional --- G0105, Colorectal cancer screening; colonoscopy on individual at high risk CPT copyright 2017 [employer]. All rights reserved. The codes documented in this report are preliminary and upon head of art review may be revised to meet current compliance requirements. MD Joslyn Dupont MD 04/16/2022 8:52:38 AM This report has been signed electronically. Number of Addenda: 0 Note Initiated On: 04/16/2022 8:21 AM
--- NOTE | 2022-04-16 09:00 | IMM_PTH ---
PATIENT: JACEY RAVI LOC: EN U#:[id number] AGE/SX: 56/F ROOM: RE04/16/[address]: Dr. Joslyn Lockhart MD : 1965 BED: DIS: 04/16/2022 SPEC #: [id number] RECD: 04/16/22 13:56 STATUS: TESS REHina #: [id number] BLANCA: 04/16/22 09:[address]: Joslyn Lockhart DEPT: IMMUNOHISTOCHEMISTRY RECD BY: Yeni Goncalves ENTERED: 04/16/22 13:57 SP TYPE: IMMUNO OTHR DR: Dr. Janny Durbin, Tissues: A - Stomach, NOS B - Esophageal mucous membrane Procedures: H Pylori (initial) P53 (initial) KI-67 (add) PHYSICIAN & INSTITUTION [place] [id number] SPECIMEN INFORMATION: Tissue Source: A ? Antrum, B ? Gastroesophageal junction Clinical Info: Change in bowel habit, blood in stool, abdominal pain, history colon cancer Specimen Number: [id number] A & B CPT code: 06192 x2, 85230 METHODOLOGY: Deparaffinized sections of prefer/formalin-fixed tissue or PAP/DQ stained slides are incubated with monoclonal/polyclonal antibodies/oligonucleotide probes. Localization is made via biotin free immunoperoxidase method. Appropriate controls are performed and reacted as expected. Results on target cell population are indicated in the following table: RESULTS: ANTIBODY / CLONE RESULT Block A H Pylori (polyclonal) negative Block B P53 (DO-7) negative Ki-67 (30-9) positive, low These tests were developed and their performance characteristics determined by [facility]. They may not have been cleared or approved by the U.S. Food and Drug Administration. The FDA has determined that such clearance or approval is not necessary. The above immunohistochemical/dualISH markers are ordered and reviewed by the Pathologist. INTERPRETATION: A. Antrum, biopsy: Negative for Helicobacter pylori organisms. B. Gastroesophageal junction, biopsy: No evidence of dysplasia. AM:manoj 04/18/2022
--- NOTE | 2022-04-16 09:00 | EGD_PTH ---
PATIENT: JACEY RAVI LOC: EN U#:[id number] AGE/SX: 56/F ROOM: RE04/16/[address]: Dr. Joslyn Lockhart MD : 1965 BED: DIS: 04/16/2022 SPEC #: [id number] RECD: 04/16/22 10:23 STATUS: TESS JITENDRA #: [id number] BLANCA: 04/16/22 09:[address]: Joslyn Lockhart DEPT: SURGICAL PATHOLOGY RECD BY: Niya Ryan ENTERED: 04/16/22 11:58 SP TYPE: EGD BIOPSY AMOS DR: Dr. Janny Durbin, DO Tissues: A - Gastric mucous membrane B - Stomach, NOS Procedures: Special Stain Group II Surgery Specimen Level IV Alcian Blue/PAS (control) HEADER OPERATION: Colonoscopy, EGD ([facility]) PRE-OP DIAGNOSIS: Change in bowel habit, blood in stool, abdominal pain, history of colon cancer TISSUE SUBMITTED: A ? Antrum for H. pylori and path, B ? Gastroesophageal junction biopsy MICROSCOPIC DIAGNOSIS A. Gastric antrum, biopsy: Chronic gastritis. See comment. B. 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 No evidence of dysplasia. Focal changes of reflux. See comment. AM:manoj 04/17/2022 COMMENT A. The results of immunohistochemistry for Helicobacter pylori will be reported separately ([id number]). B. Immunohistochemistry ([id number]) for P53 and Ki-67 will be performed and results will be reported separately. Alcian blue/PAS stain with matched control is used in the evaluation of the specimen. MICROSCOPIC DESCRIPTION Slides are reviewed. GROSS DESCRIPTION A - Received in fixative is one container labeled with the patient's name and designated antrum biopsy. The specimen consists of one irregular fragment of light tse soft tissue that measures 0.4 x 0.3 x 0.1 cm. The specimen is totally submitted in one cassette. B - Received in fixative is one container labeled with the patient's name and designated GE junction biopsy. The specimen consists of one irregular fragment of light tse soft tissue that measures 0.4 x 0.3 x 0.1 cm. The specimen is totally submitted in one cassette. / JUSTYNA:manoj 04/16/2022 TC:3 CPT: 03933 x2, 72775
== END 2022-04-16 10:06 | disposition home or self-care (01) ==
LOC: EN 07:09 → AC 07:10
PROVIDERS: PCP Family Medicine; Referring Provider Family Medicine; Visit Provider Surgery
PROC: 0DJD8ZZ Inspection of Lower Intestinal Tract, Via Natural or Artificial Opening Endoscopic (ICD-10-PCS; CPT 45378; principal; 2022-04-16 08:55)
DX: K29.50 Unspecified chronic gastritis without bleeding (principal); K22.70 Barrett's esophagus without dysplasia; K31.89 Other diseases of stomach and duodenum; K64.0 First degree hemorrhoids; K57.30 Diverticulosis of large intestine without perforation or abscess without bleeding; K21.9 Gastro-esophageal reflux disease without esophagitis; F41.9 Anxiety disorder, unspecified; Z80.0 Family history of malignant neoplasm of digestive organs; Z87.891 Personal history of nicotine dependence; Z79.899 Other long term (current) drug therapy; Z85.038 Personal history of other malignant neoplasm of large intestine
CPT/HCPCS: 45378; 43239; 88305; 88313; 88341; 88342; J7120

== ENCOUNTER 2024-11-28 15:05 | Inpatient (IN) | payer OTHER, SELFPAY ==
[2024-11-28 15:40] VITALS: BP 141/80; PULSE 80; RESP 17; TEMP 36.3; O2SAT 98; BMI 27.8
--- NOTE | 2024-11-28 15:46 | PCM.HP.STD ---
HPI - General General Date of Admission: 11/28/24 Date of Service: 11/28/24 Chief Complaint: Debility due to fall from a horse resulting in pelvic hematoma and pelvic instability requiring ORIF HPI Narrative JACEY RAVI, is a 59 YO YO F with a PMH of colon CA (s/p partial colon resection), HH/GERD, HLD, HTN, anxiety/depression, hx of cervical fusion, Tobacco dependence in remission, ovarian cysts with total abdominal hysterectomy in her 40s and osteoarthritis who was on her horse when the horse started to ponce wildly. She jumped off and landed on her buttocks/R hip. she did not hit her head. Injuries included a pelvic hematoma. There were no fractures but, she had pelvic instability. HGB dropped while in the ED and she had hypotension and was transfused with 2 units of PRBC's. The pubic symphysis was not initially widened but, then widening developed. She was taken to surgery on 11/22/24 and had ORIF of the symphysis pubis diastasis with right TSS fixation. Post op complications included constipation which has resolved with stool softeners. She had a Borrero catheter while at the previous hospital. She denies dysuria but, she has been having urinary hesitancy and has to lean forward while on the toilet to get the urine flowing. HGB has been stable since she received the 2 units of PRBC's but, we did not get any physician notes or labs after 11/24/24 and there is no DC summary with the documentation sent to us. [facility] Medical History (Updated 11/28/24 @ 17:[address] Melany Hollingsworth, ) Tobacco dependence in remission Anxiety and depression Osteoarthritis Wears glasses Post-menopausal Cancer Alcohol use High cholesterol Easy bruising Excessive bleeding Back pain Injury of head and neck Gastric reflux Former smoker History of stress test History of broken collarbone Pancreatitis Blood in stool Heart murmur Hemorrhoids Diverticulosis Diarrhea IBS (irritable bowel syndrome) Hiatal hernia History of colon cancer Hyperlipidemia GERD (gastroesophageal reflux disease) Home Medications ?Medication ?Instructions ?Recorded ?Last Taken ?Type pantoprazole 20 mg tablet,delayed 40 mg PO DAILY 07/07/16 03/26/20 History release lorazepam 0.5 mg tablet 0.5 mg PO DAILY PRN Anxiety 02/22/20 Unknown History bupropion HCl 150 mg 24 hr tablet, 150 mg PO DAILY 03/15/20 Unknown History extended release Hydrocortisone 2.5%/lidocaine 5% #30 supp 05/15/20 Unknown Rx suppository (cmpd) (hydrocortisone 2.5%/lidocaine 5% suppository (compound)) rosuvastatin 20 mg tablet 20 mg PO QHS 03/13/22 Unknown History acetaminophen 500 mg capsule 1,000 mg PO TID pain 11/28/24 Unknown History apixaban 2.5 mg tablet (Eliquis) 2.5 mg PO BID blood thinner 11/28/24 Unknown History methocarbamol 500 mg tablet 500 mg PO Q6H PRN muscle pain 11/28/24 Unknown History naltrexone 50 mg tablet 50 mg PO DAILY supp 11/28/24 Unknown History ondansetron 4 mg disintegrating 4 mg PO Q8H PRN N/V 11/28/24 Unknown History tablet oxycodone 5 mg tablet 5 mg PO Q4H PRN pain 11/28/24 Unknown History polyethylene glycol 3350 17 17 g PO DAILY constipation 11/28/24 Unknown History gram/dose oral powder (Miralax) sennosides 8.6 mg-docusate sodium 1 tab-cap PO QHS constipation 11/28/24 Unknown History 50 mg tablet (Senna Plus) Allergy/AdvReac Type Severity Reaction Status Date / Time acetaminophen (From Allergy Itching Verified 04/16/22 07:28 Darvocet-N 100) hydrocodone Allergy Itching Verified 04/16/22 07:28 latex Allergy Hives Verified 04/16/22 07:28 meperidine (From Demerol) Allergy Itching Verified 04/16/22 07:28 morphine Allergy Itching Verified 04/16/22 07:28 oxycodone (From Percocet) Allergy Itching Verified 04/16/22 07:28 Penicillins Allergy Itching Verified 04/16/22 07:28 propoxyphene (From Allergy Itching Verified 04/16/22 07:28 Darvocet-N 100) tramadol Allergy Itching Verified 04/16/22 07:28 vancomycin Allergy Other Verified 04/16/22 07:28 Family History Father Colon cancer Surgical History (Updated 11/28/24 @ 16:[address] Melany Hollingsworth DO) History of open reduction and internal fixation (ORIF) procedure History of surgery on wrist Hx of shoulder surgery Hx of thumb surgery Hx of colonoscopy Hx of fusion of cervical spine History of partial colectomy Hx of hysterectomy Social History (Updated 11/28/24 @ 16:[address] Melany Hollingsworth DO) household members: spouse housing: house number of children: 3 Smoking Status: Former smoker second hand exposure: No alcohol intake: current alcohol intake frequency: a few times a month substance use type: does not use caffeine: Yes what type of physical activity do you participate in: none frequency: does not exercise ROS Constitutional Constitutional: Denies anorexia, change in weight, chills, fatigue, fever(s), headache(s), night sweats or weakness Eyes Eyes: Denies blurry vision, change in vision, eye pain or loss of vision ENT HEENT: Reports abnormal hearing, hearing loss and other Details: Has bilateral hearing aids ; Denies dysphagia, headache(s), mouth pain, nasal congestion or sore throat Cardiovascular Cardiovascular: Reports palpitations; Denies chest pain, dyspnea on exertion, edema, lightheadedness, orthopnea, paroxysmal nocturnal dyspnea or syncope Respiratory/Chest Respiratory/Chest: Denies cough, dyspnea, shortness of breath at rest, shortness of breath with exertion or wheezing Gastrointestinal Gastrointestinal: Reports abdominal pain, constipation, heartburn, hemorrhoids and other Details: Constipation has resolved with institution of senna and MiraLAX. ; Denies diarrhea, dyspepsia, fecal incontinence, hematemesis, hematochezia, nausea or vomiting Genitourinary Genitourinary: Reports difficulty urinating and other Details: Urinary hesitancy ; Denies dysuria, hematuria, nocturia, urinary frequency, urinary hesitancy, urinary incontinence or urinary urgency Musculoskeletal Musculoskeletal: Reports other Details: Pelvic pain and pain in the lower abdomen anteriorly. ; Denies back pain, joint pain, joint swelling, neck pain or radiating pain into limb Integumentary Integumentary: Denies alopecia, jaundice or rash Neurologic Neurologic: Denies confusion, disequilibrium, dizziness, focal weakness, headache(s), paresthesias, seizures or tremor(s) Psychiatric Psychiatric: Reports anxiety and depression; Denies homicidal ideation, suicidal ideation or visual hallucinations Endocrine Endocrinology: Denies change in body appearance, polydipsia or polyuria Hematologic/Lymphatic Hematologic/Lymphatic: Denies easy bleeding, easy bruising or lymphadenopathy Allergic/Immunologic Allergic/Immunologic: Denies rhinitis, eczemia or asthma Vital Signs Vital Signs Vital Signs: 11/28/24 15:40 Temperature 97.4 F L Temperature Source Oral Pulse Rate 80 Respiratory Rate 17 Blood Pressure 141/80 H Blood Pressure Mean 100 Blood Pressure Source Monitor Blood Pressure Position Semi-Fowlers Blood Pressure Location Left Arm Pulse Ox 98 Oxygen Delivery Method Room Air Physical Exam Const alert, oriented x3, no apparent distress and average body habitus General Appearance: cooperative, well kempt and well developed HEENT normocephalic, head/scalp atraumatic and external ears normal HEENT Narrative: Has bilateral hearing aids. Mucous membranes are dry. No evidence of thrush. Eyes PERRL, EOMs intact bilaterally, conjunctivae normal and no scleral icterus Eyes Narrative: No discharge from the eyes. Neck supple, thyroid normal, No nodes and No no carotid bruits Neck Narrative: She has a small cicatrix anterior right neck secondary to prior cervical fusion. Carotids have brisk upstroke and good pulse volume bilaterally. Good range of motion in the neck. General: trachea midline Chest Chest: symmetrical chest wall rise Resp normal respiratory effort, normal air movement, no use of accessory muscles and clear to auscultation bilaterally Effort and Inspection: able to speak in complete sentences Cardio regular rate, regular rhythm, S1 normal heart sound, S2 normal heart sound, no murmurs, no rub and no gallops Cardio Narrative: No ectopy GI normal to inspection, nondistended, normoactive bowel sounds GI Narrative: Bowel sounds are mildly decreased. The abdomen is soft and nondistended. She has tenderness to palpation in the suprapubic/lower abdomen. There is ecchymosis over the mons pubis. Back/Spine Back/Spine Narrative: No pain with palpation or percussion over the vertebrae. No pain with palpation of the lumbar paravertebral muscles. No ecchymosis in the flanks. Extremity no calf tenderness and no pedal edema Extremity Narrative: Intact sensation in both feet. Excellent plantarflexion and dorsiflexion. Pedal pulses are 2+ bilaterally and the popliteal pulses are also 2+. Skin Skin Narrative: The pelvic incision anteriorly is intact with Steri-Strips in place. There is no dehiscence and no erythema or increased warmth to touch. No discharge. There is ecchymosis of the mons pubis and into the perineum. It is resolving. Neuro oriented x3, CN's II-XII intact bilaterally, moves all extremities, no focal motor deficits and no sensory deficits noted Psych mental status grossly normal, thought process normal, cooperative, affect normal, speech normal, denies hallucinations and denies suicidal ideation Psych Narrative: Good eye contact. No flight of ideas. Able to stay on topic. Appearance: grossly normal, appropriate and well kempt Attitude: calm and engaged Activity / Motor Behavior: appropriate eye contact Mood & Affect: euthymic mood Assessment & Plan Assessment/Plan (1) Physical debility: (2) Animal-rider injured by fall from or being thrown from horse in noncollision accident, subsequent encounter: (3) Traumatic diastasis of symphysis pubis: QUALIFIERS: Encounter type: subsequent encounter Qualified Code(s): S33.4XXD - Traumatic rupture of symphysis pubis, subsequent encounter (4) Pelvic hematoma: (5) Acute blood loss anemia: (6) History of open reduction and internal fixation (ORIF) procedure: (7) Urinary hesitancy: (8) Hiatal hernia: (9) GERD (gastroesophageal reflux disease): QUALIFIERS: Esophagitis presence: esophagitis presence not specified Qualified Code(s): K21.9 - Gastro-esophageal reflux disease without esophagitis (10) Hyperlipidemia: QUALIFIERS: Hyperlipidemia type: unspecified Qualified Code(s): E78.5 - Hyperlipidemia, unspecified (11) Anxiety and depression: PLAN: Plan PLAN PT for gait stability OT for ADL's Analgesics as needed Bowel protocol Fall precautions Assess for Anxiety/Depression GI prophylaxis -pantoprazole 20 mg daily DVT prophylaxis with apixaban 2.5 mg twice daily for 6 weeks Follow up with surgery, PCP following DC from IP Rehab AM lab including CMP, CBC, Mag, vitamin D and Phos Charges/Coding Visit Charges Inpatient E&M: 85535 Init Hosp L2
[2024-11-28 18:00] VITALS: BP 143/81; PULSE 62; RESP 16; TEMP 36.4; O2SAT 92
[2024-11-28 18:22] LABS: Vitamin D,25 Hydroxy 22.1 ng/mL (30-100)
[2024-11-28 21:00] VITALS: PULSE 62; RESP 16; O2SAT 92
[2024-11-28] MEDS: APIXABAN 2.5 MG TABLET (WCH) PO (21:52)
[2024-11-28] MEDS: Senna/Docusate Sodium 1 Tablet PO (21:52)
[2024-11-28 22:45] LABS: Mucous, Urine 0 SEEN /hpf (<or=2+)
[2024-11-28 22:49] LABS: Color, Urine Straw (Yellow); Glucose, Dipstick Normal (Normal); Ketone-Dipstick Negative (Negative); Leukocyte Esterase-Dipstick 25 /ul (Negative); Nitrite-Dipstick Negative (Negative); Occult Blood-Urine 25 /ul (Negative); Protein-Dipstick Negative (Negative); Specific Gravity, Urine 1.010 (1.002-1.030); Urine Bilirubin Dipstick Negative (Negative)
[2024-11-28 22:57] LABS: Squamous Epithelial Cells - UA 0-5 SEEN /hpf (5-10)
[2024-11-28 22:59] LABS: Red Blood Cells-Urine 0-5 SEEN /hpf (0-5)
[2024-11-29 05:14] VITALS: BP 141/75; PULSE 72; RESP 16; TEMP 36.5; O2SAT 93
[2024-11-29] MEDS: buPROPion (XL) 150 MG TABLET.XL PO (08:10)
[2024-11-29] MEDS: Polyethylene Glycol 3350 17 GM PACKET PO (08:11)
[2024-11-29] MEDS: APIXABAN 2.5 MG TABLET (WCH) PO ×2 (08:11→20:36)
[2024-11-29 08:38] LABS: Hematocrit 37.7 % (37-47); Hemoglobin 12.5 g/dL (12.0-15.0); Mean Corp Hgb Conc 33.2 g/dL (32-36); Mean Corpuscular Volume 92.9 fL (81-99); Mean Platelet Vol. 9.3 fl (6.2-12.0); Platelet Count 301 K/mm3 (150-450); RBC Distribution Width CV 13.2 % (11.6-14.6); RBC Distribution Width SD 44.9 fl (35.1-43.9); Red Blood Count 4.06 M/mm3 (4.2-5.4); White Blood Count 8.9 K/mm3 (4.4-11.0)
[2024-11-29 09:21] LABS: AST(SGOT) 32 U/L (<=31); Alanine Aminotransfer ALT/SGPT 34 U/L (<=34); Albumin, Serum 4.0 g/dL (3.4-4.8); Alkaline Phosphatase 75 U/L (35-104); Anion Gap 12 (5-15); BUN 12 mg/dL (4-19); BUN/Creat Ratio 20.6 RATIO (10-20); Calcium,Total 9.4 mg/dL (7.6-11.0); Carbon Dioxide 24.2 mmol/L (21.0-32.0); Chloride 105 mmol/L (98-108); Estimated Creatinine Clearance 87.50 ml/min (50-250); Globulin 2.8 g/dL (2.2-4.2); Glucose 152 mg/dL (70-99); Magnesium 2.2 mg/dL (1.5-2.2); Potassium 3.7 mmol/L (3.3-5.1)
--- NOTE | 2024-11-29 09:30 | REHABEVAL_ITS ---
Admission Information Primary Diagnosis:: Debility secondary to ORIF of pubic symphysis due to pelvic instability Status Changes from Prescreening?: No changes Identified Actual Problem List:: Skin Intergrity, Pain, ALteration in Cmfrt, Alteration in Sleep, Mobility Impaired, Self Care Deficit and Alteration-Leisure Activ. Potential Problem List:: DVT, Bleeding, Infection, UTI, Aspiration, Falls, Skin Integrity and Depression Risk of Complications DVT: MAYELA Hose and - (Apixaban 2.5 mg twice daily) Bleeding: Monitor Lab Values, Nursing to Teach Precautions for anti-coagulation therapy., Wound, if applicable, to be assessed every shift. and Stroke patients assessed for lethargy or change in status. Infection: Clinical Staff to Monitor for S/S of infection: and S/S of infection include fever, redness, warmth, etc. Urinary Tract Infection: Monitor for frequency, burning, discomfort, or incontinence. and Nursing will obtain urine sample for urinalysis and C&S when ordered. Aspiration: Clinical staff will monitor for coughing, drooling, congestion., Speech will evaluate swallowing and dsyphasia. and Nursing will monitor patient swallowing during meals. Falls: Patient will be evaluated for Fall Precautions and Patient will be placed on Fall Precautions as indicated per protocol. Skin Breakdown: Nursing will assess skin daily using assessment tool. and Nursing will place on Skin Breakdown Precautions as indicated. Pain: Clinical staff will assess patient's pain level per protocol., Medications will be given, if needed, and the pain level reassessed. and Other methods: Massage, distraction, decrease stimulus, etc. used PRN. Plan of Care Patient requires physician specializing in physical medicine and rehab oversight to provide close medical supervision of rehab issues including: Pain Management, Sleep Problems, Bowel and Bladder, Medical and co-morbidity Management, DVT prophylaxis, Rehabilitation Leadership and Coordination of treatment team Patient needs Physical Therapy: For a minimum of 1 hour and At least 5 out of 7 days Patient needs Physical Therapy to improve:: Mobility, Strengthening, Transfers, Stretching, ROM, Endurance, Stairs, Gait and Balance Patient needs Occupational Therapy: For a minimum of 1 hour and At least 5 out of 7 days Patient needs Occupational Therapy to improve ADL's incl.: Eating, Grooming, Bathing, Dressing, Toileting, Toilet transfers, Community Reintegration, Higher functioning activities, Household tasks, Adaptive Equipment, Splinting and Other activities as determined Patient requires 24/7 Rehabilitation Nursing for: Pain Issues, Identifying and preventing risk factors, Monitoring and reporting current medical conditions, Assisting with ambulation, transfer, and all ADL's, Teaching patients about disease process and medications, Family teaching, Providing safe environment, Bowel and Bladder Issues, Skin integrity and Medication Management Patient needs Ed Transporter/ Case Management for: Discharge Planning, Arranging Home Equipment or Services and Family Interventions Patient needs Dietary and Nutrition Services for: Adequate Nutrition, Nutritional Supplements and Nutritional Education Goals Goals Patient will remain: free from falls Patient will perform eating at: MOD I level of assist. Patient will perform bed mobility at: MOD I level of assist. Patient will complete transfers from bed to chair at: MOD I level of assist. Patient will ambulate: - (Patient is nonambulatory and will remain so until released by orthopedic surgery) Patient will propel wheelchair: - (350 feet on various surfaces) Patient will complete upper body dressing at: - (Independent) Patient will complete lower body dressing at: MOD I level of assist. (With adaptive [facility] as needed) Patient will complete toilet transfer at: MOD I level of assist. Patient will complete toileting at: MOD I level of assist. Patient will perform bathing at: - (Upper body bathing and independent and lower body bathing at modified with adaptive equipment as needed.) Patient will perform Tub/Shower transfer at: - (Supervision) Patient will complete grooming at: MOD I level of assist. (While seated at the sink) Patient will complete home management skills at: MOD I level of assist. Patient will achieve: - (Not at goal for this admission. She is wheelchair- bound.) Patient will have pain level of: of 3 or less Patient's skin will: remain intact Patient will receive: adequate nutrition. Discharge Planning Pt Prognosis for Sig. Practical Improv. w/in Reasonable Time: Good Estimated Length of stay (days): 14 Anticipated D/C Destination: Home w/ family or friends Was Preadmission Assessment Accurate?: Yes
--- NOTE | 2024-11-29 09:32 | PN_ITS ---
Subjective Subjective Afebrile VSS -blood pressure since admission has ranged from 141/75 to 143/81. Heart rate is within normal limits. Maintaining appropriate oxygen saturation on RA Oral intake - FOOD good FLUIDS good Discussed with nursing - no problems that need addressed. Postvoid residuals x 3 are all less than 50. Reviewed the THERAPY notes Medication list reviewed. All lab from this morning was personally reviewed. White blood cell count, hemoglobin and platelets are all within normal limits. Sodium is 141 and the potassium is 3.7. The BUN is 12 with a creatinine of 0.59 and a GFR of 102. Fasting glucose is elevated at 162. UA had 0-5 RBCs and 0 WBCs. It was nitrite negative. Slept very well last night. Denies cephalgia, lightheadedness, chest pain, shortness of breath, nausea/vomiting/abdominal pain, dysuria and calf tenderness. Tells me her pain is adequately controlled. She was able to do physical therapy this morning and had 5 mg of oxycodone. She does have some itching which she associates with the oxycodone but has no rash. Objective Data Objective Data Vital Signs: Vital Signs Temp Pulse Resp BP Pulse Ox O2 Del Method 97.7 F L 72 16 141/75 H 93 Room Air 11/29/24 05:14 11/29/24 05:14 11/29/24 05:14 11/29/24 05:14 11/29/24 05:14 11/29/24 05:14 Oxygen Delivery Method Room Air Weight: 147 lb Body Mass Index (BMI) 27.8 Intake & Output: Intake and Output for Last 24 Hours 11/27/24 11/28/24 11/29/24 23:59 23:59 23:59 Intake Total 1220 / 1220 570 / 570 Output Total 1290 / 1290 400 / 400 Balance -70 / -70 170 / 170 Lab / Micro Data 11/29/24 08:31 11/29/24 08:31 Labs: Laboratory Results - last 24 hr 11/28/24 17:34: Vitamin D 25-Hydroxy 22.1 L 11/28/24 22:10: Urine Color Straw, Urine Clarity Clear, Urine pH 7.0, Ur Specific [place] 1.010, Urine Protein Negative, Urine Glucose (UA) Normal, Urine Ketones Negative, Urine Occult Blood 25 H, Urine Nitrite Negative, Urine Bilirubin Negative, Urine Urobilinogen Normal, Ur Leukocyte Esterase 25 H, Urine RBC 0-5 SEEN, Urine WBC 0 SEEN, Ur Squamous Epith Cells 0-5 SEEN, Amorphous Sediment 1+, Urine Bacteria 1+, Urine Mucus 0 SEEN 11/29/24 08:31: WBC 8.9, RBC 4.06 L, Hgb 12.5, Hct 37.7, MCV 92.9, MCH 30.8, MCHC 33.2, RDW Std Deviation 44.9 H, RDW Coeff of [place] 13.2, Plt Count 301, MPV 9.3, Sodium 141, Potassium 3.7, Chloride 105, Carbon Dioxide 24.2, Anion Gap 12, BUN 12, Creatinine 0.59 L, Estim Creat Clear Calc 87.50, Est GFR (MDRD) Non-Af 102, BUN/Creatinine Ratio 20.6 H, Glucose 152 H, Calcium 9.4, Phosphorus 3.6, Magnesium 2.2, Total Bilirubin 0.76, AST 32, ALT 34, Alkaline Phosphatase 75, Total Protein 6.7, Albumin 4.0, Globulin 2.8, Albumin/Globulin Ratio 1.4 Physical Exam Const alert, oriented x3 and no apparent distress General Appearance: cooperative Resp normal respiratory effort and clear to auscultation bilaterally Effort and Inspection: Negative for tachypneic Cardio regular rate, regular rhythm, no murmurs and no gallops GI normal to inspection, nondistended, normoactive bowel sounds, soft to palpation and non-tender Extremity no calf tenderness General Extremity: Negative for edema Assessment & Plan Assessment/Plan (1) Physical debility: (2) Animal-rider injured by fall from or being thrown from horse in noncollision accident, subsequent encounter: (3) Traumatic diastasis of symphysis pubis: QUALIFIERS: Encounter type: subsequent encounter Qualified Code(s): S33.4XXD - Traumatic rupture of symphysis pubis, subsequent encounter (4) Pelvic hematoma: (5) Acute blood loss anemia: (6) History of open reduction and internal fixation (ORIF) procedure: (7) Urinary hesitancy: (8) Hiatal hernia: (9) GERD (gastroesophageal reflux disease): QUALIFIERS: Esophagitis presence: esophagitis presence not specified Qualified Code(s): K21.9 - Gastro-esophageal reflux disease without esophagitis (10) Hyperlipidemia: QUALIFIERS: Hyperlipidemia type: unspecified Qualified Code(s): E 78.5 - Hyperlipidemia, unspecified (11) Anxiety and depression: (12) Hyperglycemia: PLAN: Possibly stress induced. (13) Vitamin D deficiency: PLAN: Plan 1. Continue therapy 2. Start cholecalciferol 1000 mcg p.o. daily 3. Recommend a DEXA in the next few months postdischarge from rehab. 4. Check a hemoglobin A1c 5. Continue current pain regimen. Charges/Coding Visit Charges Inpatient E&M: 95231 Subs Hosp L1
[2024-11-29 17:45] VITALS: BP 128/79; PULSE 60; RESP 16; TEMP 36.4; O2SAT 98
[2024-11-29 19:45] VITALS: PULSE 60; RESP 16; O2SAT 98
[2024-11-29] MEDS: Senna/Docusate Sodium 1 Tablet PO (20:37)
[2024-11-30 05:17] VITALS: BP 104/62; PULSE 64; RESP 17; TEMP 36.4; O2SAT 97
[2024-11-30 05:20] VITALS: BMI 27.2
[2024-11-30] MEDS: buPROPion (XL) 150 MG TABLET.XL PO (09:24)
[2024-11-30] MEDS: Polyethylene Glycol 3350 17 GM PACKET PO (09:24)
[2024-11-30] MEDS: APIXABAN 2.5 MG TABLET (WCH) PO ×2 (09:24→20:41)
[2024-11-30 10:00] VITALS: PULSE 64; RESP 17; O2SAT 97
[2024-11-30 17:41] VITALS: BP 107/67; PULSE 61; RESP 17; TEMP 36.3; O2SAT 98
--- NOTE | 2024-11-30 18:57 | PN.REHAB_ITS ---
Subjective Subjective Patient seen, examined. She is sitting up, getting ready for shower. She has no new problems, concerns, issues, complaints. She feels her pelvic pain is controlled with pain medications, and her pain improves little bit every day. Objective Data Objective Data Vital Signs: Vital Signs Temp Pulse Resp BP Pulse Ox O2 Del Method 97.3 F L 61 17 107/67 98 Room Air 11/30/24 17:41 11/30/24 17:41 11/30/24 17:41 11/30/24 17:41 11/30/24 17:41 11/30/24 17:41 Oxygen Delivery Method Room Air Weight: 65.4 kg Body Mass Index (BMI) 27.2 Intake & Output: Intake and Output for Last 24 Hours 11/28/24 11/29/24 11/30/24 23:59 23:59 23:59 Intake Total 1220 / 1220 1910 / 1910 1400 / 1400 Output Total 1290 / 1290 900 / 900 650 / 650 Balance -70 / -70 1010 / 1010 750 / 750 Lab / Micro Data 11/29/24 08:31 11/29/24 08:31 Micro: Microbiology 11/28/24 22:10 Urine, Catheterized Urine Culture - Preliminary Culture exhibits no growth. Indicators for Scoring Admitted with or Primary Diagnosis of CVA/Stroke: No Hx of CVA/Stroke: No Physical Exam Const alert General Appearance: cooperative HEENT normocephalic Eyes PERRL and EOMs intact bilaterally Neck supple, no JVD and no carotid bruits Resp normal respiratory effort, normal air movement and clear to auscultation bilaterally Cardio regular rate and regular rhythm GI normal to inspection, nondistended, normoactive bowel sounds, non-tender and non-distended Extremity normal capillary refill General Extremity: Negative for edema Skin no rashes or lesions noted General Skin Exam: no breakdown Psych affect normal Appearance: appropriate Assessment & Plan Assessment/Plan (1) Debility: (2) Pelvic floor instability: (3) Pelvic hematoma: (4) History of colon cancer: (5) Hiatal hernia: (6) Essential (primary) hypertension: (7) Hyperlipidemia: QUALIFIERS: Hyperlipidemia type: unspecified Qualified Code(s): E 78.5 - Hyperlipidemia, unspecified (8) Depression: (9) Anxiety: PLAN: Plan 59 year old female with below past medical history hospitalized for pelvic instability, s/p ORIF, complicated by pelvic hematoma, acute blood loss anemia, admitted to for 3 hours daily rehabilitation, strengthening, prior to discharge home with . * Debility - PT/OT. * Pain - Tylenol 1000mg tid, Oxycodone 5mg 0700, 2200, 5mg po q4 prn. * Bowel - Senna/colace 1 tablet qhs, Miralax 17gm daily, Dulcolax 10mg pr x 1 prn, MOM 30mL daily prn. * DVT prophylaxis - Eliquis 2.5mg bid thru 01/09/2025. * Hyperlipidemia - Atorvastatin 40mg qhs. * Depression - Wellbutrin XL 150mg daily. * Anxiety - Lorazepam 0.5mg daily prn. * Muscle spasm - Robaxin 500mg q6 prn. * Nausea - Zofran 4mg q8 prn. * GERD - Pantoprazole 40mg daily.
[2024-11-30 20:30] VITALS: PULSE 61; RESP 17; O2SAT 98
[2024-11-30] MEDS: Senna/Docusate Sodium 1 Tablet PO (20:41)
[2024-12-01 05:43] VITALS: BP 127/76; PULSE 73; RESP 16; TEMP 36.7; O2SAT 98
[2024-12-01 07:16] VITALS: O2SAT 98
[2024-12-01] MEDS: APIXABAN 2.5 MG TABLET (WCH) PO ×2 (07:54→21:10)
[2024-12-01] MEDS: Polyethylene Glycol 3350 17 GM PACKET PO (07:55)
[2024-12-01] MEDS: buPROPion (XL) 150 MG TABLET.XL PO (07:55)
--- NOTE | 2024-12-01 08:31 | CASEMGMT ---
Social Work IDT met with patient for Team meeting. Discussed patient's progress in PT/OT/SN/MD/PROCESS IMPROVEMENT CONSULTANT. Educated to R CM insurance with [employer] 12/02 and continued stay is not guaranteed with each review. Identified DC needs - 16 in w/c, BSC drop arm (pt has slideboard at home), and no therapy; pt will do HEP. SW will coordinate at DC. Will ReTeam weekly. SW will continue to follow for DC planning. Areli Downing [employer] CLE[employer] CHEF MANAGER
[2024-12-01 18:00] VITALS: BP 129/83; PULSE 65; RESP 16; TEMP 36.4; O2SAT 97
[2024-12-01] MEDS: Senna/Docusate Sodium 1 Tablet PO (21:10)
[2024-12-02 05:35] VITALS: BP 116/67; PULSE 67; RESP 17; TEMP 36; O2SAT 99
[2024-12-02] MEDS: buPROPion (XL) 150 MG TABLET.XL PO (07:54)
[2024-12-02] MEDS: Polyethylene Glycol 3350 17 GM PACKET PO (07:54)
[2024-12-02] MEDS: APIXABAN 2.5 MG TABLET (WCH) PO ×2 (07:54→21:17)
--- NOTE | 2024-12-02 08:20 | CT_ITS ---
PROCEDURE: PELVIS WITHOUT IV CONTRAST 12/02/2024 REASON FOR EXAM: PELVIC FRACTURE TECHNIQUE: Procedure Code: CTPEL Modality: CT Procedure: PELVIS WITHOUT IV CONTRAST One or more dose reduction techniques were used (e.g., Automated exposure control, adjustment of the mA and/or kV according to patient size, use of iterative reconstruction technique). RADIATION DOSE SUMMARY: CTDlvol: 12.94 mGy DLP: 423.20 mGycm COMPARISON: None FINDINGS: Bones: No acute bony abnormalities Hip Joints: Status post surgical correction of the medial bilateral superior pubic rami with metallic plates and screws. Limited evaluation of the bones surrounding the pubic symphysis due to streak artifact from metallic plate. SI Joints: fusion of the sacroiliac joints with a traversing screw which are otherwise unremarkable. Soft Tissues: A 4 x 3.8 x 3 cm soft tissue hematoma anterior to the pubic symphysis. Visualized pelvis: No acute abnormalities. CT/Pelvis without IV Contrast IMPRESSION: Status post surgical correction of the medial bilateral superior pubic rami wit h metallic plates and screws. Limited evaluations of the bones due to streak artifact. No evidence of acute bony abnormalities. A 4 x 3.8 x 3 cm soft tissue hematoma anterior to the pubic symphysis. Reading Location: [id number]
--- NOTE | 2024-12-02 08:33 | PN.REHAB_ITS ---
Subjective Subjective Patient seen, examined. She is sitting up in bed, working on a craft. She feels her bladder swelling is improving, she feels some burning in her buttocks from ORIF hardware. She discussed trauma surgery wanting CT pelvis follow up. Will order and send results to her trauma surgeon. Objective Data Objective Data Vital Signs: Vital Signs Temp Pulse Resp BP Pulse Ox O2 Del Method 96.8 F L 67 17 116/67 99 Room Air 12/02/24 05:35 12/02/24 05:35 12/02/24 05:35 12/02/24 05:35 12/02/24 05:35 12/02/24 05:35 Oxygen Delivery Method Room Air Weight: 65.4 kg Body Mass Index (BMI) 27.2 Intake & Output: Intake and Output for Last 24 Hours 11/30/24 12/01/24 12/02/24 23:59 23:59 23:59 Intake Total 1600 / 1600 2420 / 2420 240 / 240 Output Total 750 / 750 1800 / 1800 Balance 850 / 850 620 / 620 240 / 240 Lab / Micro Data 11/29/24 08:31 11/29/24 08:31 Micro: Microbiology 11/28/24 22:10 Urine, Catheterized Urine Culture - Preliminary Gram Positive Cocci Indicators for Scoring Admitted with or Primary Diagnosis of CVA/Stroke: No Hx of CVA/Stroke: No Physical Exam Const alert General Appearance: cooperative HEENT normocephalic Eyes PERRL and EOMs intact bilaterally Neck supple, no JVD and no carotid bruits Resp normal respiratory effort, normal air movement and clear to auscultation bilaterally Cardio regular rate and regular rhythm GI normal to inspection, nondistended, normoactive bowel sounds, non-tender and non-distended Extremity normal capillary refill General Extremity: Negative for edema Skin no rashes or lesions noted General Skin Exam: no breakdown Psych affect normal Appearance: appropriate Assessment & Plan Assessment/Plan (1) Debility: (2) Pelvic floor instability: (3) Pelvic hematoma: (4) History of colon cancer: (5) Hiatal hernia: (6) Essential (primary) hypertension: (7) Hyperlipidemia: QUALIFIERS: Hyperlipidemia type: unspecified Qualified Code(s): E 78.5 - Hyperlipidemia, unspecified (8) Depression: (9) Anxiety: PLAN: Plan 59 year old female with below past medical history hospitalized for pelvic instability, s/p ORIF, complicated by pelvic hematoma, acute blood loss anemia, admitted to for 3 hours daily rehabilitation, strengthening, prior to discharge home with . * Debility - PT/OT. * Pain - Tylenol 1000mg tid, Oxycodone 5mg 0700, 2200, 5mg po q4 prn. * Bowel - Senna/colace 1 tablet qhs, Miralax 17gm daily, Dulcolax 10mg pr x 1 prn, MOM 30mL daily prn. * DVT prophylaxis - Eliquis 2.5mg bid thru 01/09/2025. * Pelvic instability s/p ORIF - Order CT pelvis no contrast, forward results to trauma surgery. * Hyperlipidemia - Atorvastatin 40mg qhs. * Depression - Wellbutrin XL 150mg daily. * Anxiety - Lorazepam 0.5mg daily prn. * Muscle spasm - Robaxin 500mg q6 prn. * Nausea - Zofran 4mg q8 prn. * GERD - Pantoprazole 40mg daily.
--- NOTE | 2024-12-02 08:43 | NURSING ---
New order received for CT of pelvis without contrast and send imaging to surgeon for review. CT updated on new order and stated they would send CT results to [facility]. Dr. Luis Burleson's office was called and Bryon from his office was updated that the CT results would be sent to [facility] for review. Bryon states he would update Dr. Burleson.
[2024-12-02 17:38] VITALS: BP 114/71; PULSE 67; RESP 17; TEMP 36.5; O2SAT 95
[2024-12-03 05:54] VITALS: BP 111/77; PULSE 74; RESP 16; TEMP 36.6; O2SAT 97
[2024-12-03 07:15] VITALS: O2SAT 93
[2024-12-03] MEDS: Polyethylene Glycol 3350 17 GM PACKET PO (07:52)
[2024-12-03] MEDS: APIXABAN 2.5 MG TABLET (WCH) PO ×2 (07:52→21:37)
[2024-12-03] MEDS: buPROPion (XL) 150 MG TABLET.XL PO (07:52)
[2024-12-03 18:00] VITALS: BP 119/82; PULSE 65; RESP 15; TEMP 36.7; O2SAT 99
[2024-12-03] MEDS: Senna/Docusate Sodium 1 Tablet PO (21:41)
[2024-12-04 06:00] VITALS: BP 112/83; PULSE 71; RESP 15; TEMP 36.9; O2SAT 98
[2024-12-04] MEDS: APIXABAN 2.5 MG TABLET (WCH) PO ×2 (07:44→21:45)
[2024-12-04] MEDS: buPROPion (XL) 150 MG TABLET.XL PO (07:44)
[2024-12-04 17:12] VITALS: BP 132/75; PULSE 63; RESP 16; TEMP 36.4; O2SAT 99
[2024-12-04] MEDS: Senna/Docusate Sodium 1 Tablet PO (21:46)
[2024-12-05 06:00] VITALS: BP 125/72; PULSE 63; RESP 16; TEMP 36.6; O2SAT 98
[2024-12-05] MEDS: APIXABAN 2.5 MG TABLET (WCH) PO ×2 (07:23→21:24)
[2024-12-05] MEDS: buPROPion (XL) 150 MG TABLET.XL PO (07:23)
--- NOTE | 2024-12-05 09:01 | PN.REHAB_ITS ---
Subjective Subjective Patient seen, examined. She feels her bladder is improving. Pain controlled. 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 Objective Data Objective Data Vital Signs: Vital Signs Temp Pulse Resp BP Pulse Ox O2 Del Method 97.9 F 63 16 125/72 H 98 Room Air 12/05/24 06:00 12/05/24 06:00 12/05/24 06:00 12/05/24 06:00 12/05/24 06:00 12/05/24 06:00 Oxygen Delivery Method Room Air Weight: 65.4 kg Body Mass Index (BMI) 27.2 Intake & Output: Intake and Output for Last 24 Hours 12/03/24 12/04/24 12/05/24 23:59 23:59 23:59 Intake Total 1910 / 1910 1400 / 1400 400 / 400 Output Total 1350 / 1350 380 / 380 515 / 515 Balance 560 / 560 1020 / 1020 -115 / -115 Lab / Micro Data 11/29/24 08:31 11/29/24 08:31 Micro: Microbiology 11/28/24 22:10 Urine, Catheterized Urine Culture - Final Strep anginosus Indicators for Scoring Admitted with or Primary Diagnosis of CVA/Stroke: No Hx of CVA/Stroke: No Physical Exam Const alert General Appearance: cooperative HEENT normocephalic Eyes PERRL and EOMs intact bilaterally Neck supple, no JVD and no carotid bruits Resp normal respiratory effort, normal air movement and clear to auscultation bilaterally Cardio regular rate and regular rhythm GI normal to inspection, nondistended, normoactive bowel sounds, non-tender and non-distended Extremity normal capillary refill General Extremity: Negative for edema Skin no rashes or lesions noted General Skin Exam: no breakdown Psych affect normal Appearance: appropriate Assessment & Plan Assessment/Plan (1) Debility: (2) Pelvic floor instability: (3) Pelvic hematoma: (4) History of colon cancer: (5) Hiatal hernia: (6) Essential (primary) hypertension: (7) Hyperlipidemia: QUALIFIERS: Hyperlipidemia type: unspecified Qualified Code(s): E 78.5 - Hyperlipidemia, unspecified (8) Depression: (9) Anxiety: PLAN: Plan 59 year old female with below past medical history hospitalized for pelvic instability, s/p ORIF, complicated by pelvic hematoma, acute blood loss anemia, admitted to for 3 hours daily rehabilitation, strengthening, prior to discharge home with . * Debility - PT/OT. * Pain - Tylenol 1000mg tid, Oxycodone 5mg 0700, 2200, 5mg po q4 prn. * Bowel - Senna/colace 1 tablet qhs, Miralax 17gm daily, Dulcolax 10mg pr x 1 prn, MOM 30mL daily prn. * DVT prophylaxis - Eliquis 2.5mg bid thru 01/09/2025. * Pelvic instability s/p ORIF - Order CT pelvis no contrast, forward results to trauma surgery. * Hyperlipidemia - Atorvastatin 40mg qhs. * Depression - Wellbutrin XL 150mg daily. * Anxiety - Lorazepam 0.5mg daily prn. * Muscle spasm - Robaxin 500mg q6 prn. * Nausea - Zofran 4mg q8 prn. * GERD - Pantoprazole 40mg daily.
[2024-12-05 17:27] VITALS: BP 141/72; PULSE 65; RESP 15; TEMP 36.4; O2SAT 100
[2024-12-05] MEDS: Senna/Docusate Sodium 1 Tablet PO (21:24)
[2024-12-05] MEDS: Polyethylene Glycol 3350 17 GM PACKET PO (21:24)
[2024-12-06 06:00] VITALS: BP 104/83; PULSE 77; RESP 16; TEMP 36.6; O2SAT 95
[2024-12-06] MEDS: APIXABAN 2.5 MG TABLET (WCH) PO ×2 (08:06→21:13)
[2024-12-06] MEDS: buPROPion (XL) 150 MG TABLET.XL PO (08:06)
--- NOTE | 2024-12-06 08:16 | PN.REHAB_ITS ---
Subjective Subjective Patient seen, examined. No acute events overnight, she is working on a [employer]. She has no new complaints, she notes her incision has healed nicely. Objective Data Objective Data Vital Signs: Vital Signs Temp Pulse Resp BP Pulse Ox O2 Del Method 97.8 F 77 16 104/83 H 95 Room Air 12/06/24 06:00 12/06/24 06:00 12/06/24 06:00 12/06/24 06:00 12/06/24 06:00 12/06/24 06:00 Oxygen Delivery Method Room Air Weight: 65.4 kg Body Mass Index (BMI) 27.2 Intake & Output: Intake and Output for Last 24 Hours 12/04/24 12/05/24 12/06/24 23:59 23:59 23:59 Intake Total 1400 / 1400 2070 / 2070 325 / 325 Output Total 380 / 380 1065 / 1065 1050 / 1050 Balance 1020 / 1020 1005 / 1005 -725 / -725 Lab / Micro Data 11/29/24 08:31 11/29/24 08:31 Micro: Microbiology 11/28/24 22:10 Urine, Catheterized Urine Culture - Final Strep anginosus Indicators for Scoring Admitted with or Primary Diagnosis of CVA/Stroke: No Hx of CVA/Stroke: No Physical Exam Const alert General Appearance: cooperative HEENT normocephalic Eyes PERRL and EOMs intact bilaterally Neck supple, no JVD and no carotid bruits Resp normal respiratory effort, normal air movement and clear to auscultation bilaterally Cardio regular rate and regular rhythm GI normal to inspection, nondistended, normoactive bowel sounds, non-tender and non-distended Extremity normal capillary refill General Extremity: Negative for edema Skin no rashes or lesions noted General Skin Exam: no breakdown Psych affect normal Appearance: appropriate Assessment & Plan Assessment/Plan (1) Debility: (2) Pelvic floor instability: (3) Pelvic hematoma: (4) History of colon cancer: (5) Hiatal hernia: (6) Essential (primary) hypertension: (7) Hyperlipidemia: QUALIFIERS: Hyperlipidemia type: unspecified Qualified Code(s): E 78.5 - Hyperlipidemia, unspecified (8) Depression: (9) Anxiety: PLAN: Plan 59 year old female with below past medical history hospitalized for pelvic instability, s/p ORIF, complicated by pelvic hematoma, acute blood loss anemia, admitted to for 3 hours daily rehabilitation, strengthening, prior to discharge home with . * Debility - PT/OT. * Pain - Tylenol 1000mg tid, Oxycodone 5mg 0700, 2200, 5mg po q4 prn. * Bowel - Senna/colace 1 tablet qhs, Miralax 17gm daily, Dulcolax 10mg pr x 1 prn, MOM 30mL daily prn. * DVT prophylaxis - Eliquis 2.5mg bid thru 01/09/2025. * Pelvic instability s/p ORIF - CT pelvis done, forward to surgeon. * Hyperlipidemia - Atorvastatin 40mg qhs. * Depression - Wellbutrin XL 150mg daily. * Anxiety - Lorazepam 0.5mg daily prn. * Muscle spasm - Robaxin 500mg q6 prn. * Nausea - Zofran 4mg q8 prn. * GERD - Pantoprazole 40mg daily.
--- NOTE | 2024-12-06 13:57 | CASEMGMT ---
Social Work SW received a voicemail message from Lori with [facility] ([phone]) inquiring about pt's discharge date. SW returned call and left a message that dc date is not know at this time and that NRD with insurance is pending at this time. SW to update [facility] when dc plans are made.SHAHNAZ Moraes
[2024-12-06 17:24] VITALS: BP 139/78; PULSE 64; RESP 16; TEMP 36.2; O2SAT 94
--- NOTE | 2024-12-06 20:23 | NURSING ---
entered room pt having some anxiety, administered Ativan, will continue to monitor
[2024-12-06] MEDS: Polyethylene Glycol 3350 17 GM PACKET PO (21:12)
[2024-12-06] MEDS: Senna/Docusate Sodium 1 Tablet PO (21:13)
[2024-12-07 06:00] VITALS: BP 115/78; PULSE 75; RESP 16; TEMP 36.3; O2SAT 96
--- NOTE | 2024-12-07 08:52 | DS.PCM_ITS ---
Providers Date of Admission: 11/28/24 Date of Discharge: 12/08/24 Primary Care Physician: Dr. Janny Durbin, DO worldwide chief creative officer Reason For Visit: BLUNT FORCE TRAUMA Diagnosis Discharge Diagnosis (1) Debility: Status: Acute Code(s): R53.81 - Other malaise Plan: *Patient has a mobility limitation that cannot be sufficiently resolved by using a cane or walker. Use of a w/c will improve the participating of ADLs on a regular basis in the home. Patient can independently self-propel. (2) Pelvic floor instability: Status: Acute Code(s): M62.89 - Other specified disorders of muscle Plan: *follow up as scheduled *LLE partical weight bearing *RLE toe touch weight bearing *utilize WC *as above until cleared by ortho (3) Pelvic hematoma: Status: Acute Plan: *follow up as scheduled (4) History of colon cancer: Status: Acute Code(s): Z85.038 - Personal history of other malignant neoplasm of large intestine Plan: *follow up with PCP (5) Hiatal hernia: Status: Acute Code(s): K44.9 - Diaphragmatic hernia without obstruction or gangrene Plan: follow up with PCP (6) Essential (primary) hypertension: Status: Acute Code(s): I10 - Essential (primary) hypertension Plan: follow up with PCP continue home medications (7) Hyperlipidemia: Status: Acute Code(s): E78.5 - Hyperlipidemia, unspecified Qualifiers: Hyperlipidemia type: unspecified Qualified Code(s): E78.5 - Hyperlipidemia, unspecified Plan: continue with home medications (8) Depression: Status: Acute Code(s): F32.A - Depression, unspecified Plan: continue with home medications (9) Anxiety: Status: Acute Code(s): F41.9 - Anxiety disorder, unspecified Plan: continue with home medications Medications at Discharge Home Medications pantoprazole 20 mg tablet,delayed release 20 mg PO DAILY gerd 07/07/16 lorazepam 0.5 mg tablet 0.5 mg PO DAILY PRN Anxiety 02/22/20 bupropion HCl 150 mg 24 hr tablet, extended release 150 mg PO DAILY mood 03/15/20 rosuvastatin 20 mg tablet 20 mg PO QHS cholesterol 03/13/22 acetaminophen 500 mg capsule 1,000 mg PO TID pain 11/28/24 methocarbamol 500 mg tablet 500 mg PO Q6H PRN muscle pain 11/28/24 naltrexone 50 mg tablet 50 mg PO DAILY supp 11/28/24 ondansetron 4 mg disintegrating tablet 4 mg PO Q8H PRN N/V 11/28/24 polyethylene glycol 3350 17 gram/dose oral powder (Miralax) 17 g PO DAILY constipation 11/28/24 sennosides 8.6 mg-docusate sodium 50 mg tablet (Senna Plus) 1 tab-cap PO QHS constipation 11/28/24 apixaban 2.5 mg tablet (Eliquis) 2.5 mg PO BID blood thinner 32 days #64 tabs 12/07/24 oxycodone 5 mg tablet 5 mg PO Q4H PRN pain 7 days #42 tabs 12/07/24 Hospital Course Operations - (ORIF of the pubic symphysis due to pelvic instability after fall from horse ) Summary of Care Provided Minutes Spent on Discharge: 90 Hospital Course: Pt was admitted to the In patient rehab unit on 11/29/24, due to debility secondary to ORIF of the pubic symphysis related to pelvic instability as a result of a fall from a horse. PT was able to participate well with therapies. Recommend that she continues therapies outpatient once cleared by ortho/trauma surgery. She currently has restrictions of LLE partial weight bearing and RLE toe touch weight bearing. Request by trauma surgery for a abd/pelvis CT showed continued hematoma of 4x3.8x3. Her pain has been well controlled with scheduled Acetaminophen and the use of Oxycodone 5mg PO every 4 hours as needed for breakthrough pain. Prescription sent to the patients home pharmacy for a 7 day supply. Follow up with ortho/trauma surgery and PCP as scheduled. *Patient has a mobility limitation that cannot be sufficiently resolved by using a cane or walker. Use of a w/c will improve the participating of ADLs on a regular basis in the home. Patient can independently self-propel. Physical Exam Const alert, oriented x3 and no apparent distress General Appearance: cooperative Orientation / Consciousness: awake, oriented to person, oriented to place and oriented to time Exam Limitations: no limitations HEENT normocephalic Head and Scalp: normal to inspection Mouth: oral and palatal mucosa normal and lips normal Eyes PERRL Eyes Narrative: corrective lenses General Eye: normal appearance of both eyes Neck full ROM Lymph Lymphatic: no lymphadenopathy noted Chest inspection of chest normal Resp normal respiratory effort, normal air movement, no retractions, no use of accessory muscles and clear to auscultation bilaterally Cardio regular rate, regular rhythm, S1 normal heart sound and S2 normal heart sound GI normal to inspection, nondistended, normoactive bowel sounds, soft to palpation, non-tender and non-distended Back/Spine no CVA tenderness Pelvis: buttocks abnormal bilateral (does have some intermittent burning but currently controlled ) Extremity normal to inspection Extremity Narrative: self propelling in WC Peripheral Pulses: Yes pulses 2+ throughout Skin no rashes or lesions noted Neuro oriented x3, CN's II-XII intact bilaterally and moves all extremities Speech: speech normal Psych Psych Narrative: reports she had some anxiety and then had an anxiety atteck but was able to talk herself through it Appearance: grossly normal Attitude: calm and engaged Activity / Motor Behavior: appropriate eye contact Speech: normal speech Insight: insight good Judgement: judgement good Weight / BMI Weight Weight: 144 lb 2.917 oz Body Mass Index (BMI) 27.2 ABG / Lab / Microbiology Data 11/29/24 08:31 11/29/24 08:31 Microbiology: Microbiology 11/28/24 22:10 Urine, Catheterized Urine Culture - Final Strep anginosus Radiography Diagnostic Testing: CT Abd/Pelvis 12/02/24: FINDINGS: Bones: No acute bony abnormalities Hip Joints: Status post surgical correction of the medial bilateral superior pubic rami with metallic plates and screws. Limited evaluation of the bones surrounding the pubic symphysis due to streak artifact from metallic plate. SI Joints: fusion of the sacroiliac joints with a traversing screw which are otherwise unremarkable. Soft Tissues: A 4 x 3.8 x 3 cm soft tissue hematoma anterior to the pubic symphysis. Visualized pelvis: No acute abnormalities. CT/Pelvis without IV Contrast IMPRESSION: Status post surgical correction of the medial bilateral superior pubic rami with metallic plates and screws. Limited evaluations of the bones due to streak artifact. No evidence of acute bony abnormalities. A 4 x 3.8 x 3 cm soft tissue hematoma anterior to the pubic symphysis. Reading Location: [id number] D/C Instructions Weight Bearing Status: Partial weight bearing (Left lower extremity) and Toe touch weight bearing (Right lower extremity ) Call your doctor if your incision/area has: Continuous Slow Oozing, Sudden Increased Bleeding, Increased Pain/ Swelling, Increased Redness, Foul Smelling Discharge and Swelling at the incision site Call your doctor if you observe: Fever of 101 or Higher, Coldness, Increased Pain, Numbness or Tingling, Inability to urinate, Inability to have a bowel movement, Shortness of breath, Swelling in the ankles, Increased palpitations (irregular heartbeat), Calf discomfort and Uncontrolled pain Suture Line Care: Avoid Pulling/Pushing Cleanse incision/area with: Soap & Water DC O2, CPAP, BIPAP Needs Home O2 Discharge instructions: No DC home with Oxygen: No Please Follow Up With: Janny Durbin, DO Meaningful Use Info Meaningful Use Meaningful Use Diagnoses (Choose all that apply): None applicable Ischemic Stroke Statins at discharge?: Yes Discharge Plan Admission Admit Date/Time: 11/28/24 15:05 Primary Reason for Your Visit: debility secondary to ORIF of the pubic symphysis dt pelvic instability Attending Provider: Melany Hollingsworth Primary Care Provider: Janny Durbin Discharge Orders/Prescriptions Prescriptions: Continued bupropion HCl 150 mg tablet extended release 24 hr 150 mg PO DAILY Patient Comments: take 1 tablet by mouth every 24 hours rosuvastatin 20 mg tablet 20 mg PO QHS Patient Comments: take 1 tablet by mouth once daily pantoprazole 20 MG tablet 20 mg PO DAILY lorazepam 0.5 MG tablet 0.5 mg PO DAILY PRN (Reason: Anxiety) naltrexone 50 mg tablet 50 mg PO DAILY acetaminophen 500 mg capsule 1,000 mg PO TID methocarbamol 500 mg tablet 500 mg PO Q6H PRN (Reason: muscle pain) ondansetron 4 mg tablet,disintegrating 4 mg PO Q8H PRN (Reason: N/V) polyethylene glycol 3350 [Miralax] 17 gram/dose powder 17 g PO DAILY sennosides-docusate sodium [Senna Plus] 8.6-50 mg tablet 1 tab-cap PO QHS oxycodone 5 mg tablet 5 mg PO Q4H PRN (Reason: pain) 7 Days Qty: 42 0RF Eliquis 2.5 mg tablet 2.5 mg PO BID 32 Days Qty: 64 0RF Referrals / Follow Up: Janny Durbin DO [Primary Care Provider, Family Practice] - 12/15/24 1:55 pm Referral Note: Georgette Siddiqi CNP Disposition Disposition (needs filled in before D/C Order can be placed): Home, Self Care Charges/Coding Visit Charges Inpatient E&M: 34283 Disch Hosp >30min
[2024-12-07] MEDS: APIXABAN 2.5 MG TABLET (WCH) PO ×2 (08:59→21:21)
[2024-12-07] MEDS: buPROPion (XL) 150 MG TABLET.XL PO (09:00)
--- NOTE | 2024-12-07 14:58 | CASEMGMT ---
Social Work Insurance issued LCD 12/08, DC 12/09 SW spoke with pt to notify of DC date, but SW aware pt was ready to DC and offered for pt to DC earlier. Pt agreed and appreciative. Confirmed DC date 12/08. Confirmed no therapy, pt will participate in HEP, and 16 in w/c and drop arm BSC. Pt declined BSC as she ordered on herself d/t her preferences. SW updated script. pt stated can transport at 1430. IDT updated. ERICA sent the referral to [facility] via [facility] for w/c to be delivered to pt's room prior to DC. Plan: DC home with 12/08, w/c Areli Downing [employer] TAILER OFF
[2024-12-07 18:00] VITALS: BP 116/82; PULSE 66; RESP 17; TEMP 36.8; O2SAT 98
[2024-12-07] MEDS: Polyethylene Glycol 3350 17 GM PACKET PO (21:19)
[2024-12-07] MEDS: Senna/Docusate Sodium 1 Tablet PO (21:20)
[2024-12-08 06:00] VITALS: BP 116/63; PULSE 70; RESP 16; TEMP 36.4; O2SAT 99
[2024-12-08] MEDS: APIXABAN 2.5 MG TABLET (WCH) PO (09:12)
[2024-12-08] MEDS: buPROPion (XL) 150 MG TABLET.XL PO (09:12)
[2024-12-08 14:05] VITALS: BP 107/74; PULSE 71; RESP 16; TEMP 36.6; O2SAT 97
== END 2024-12-08 14:31 | disposition home or self-care (01) | DRG 950 ==
PROVIDERS: Admitting Provider Internal Medicine; PCP Family Medicine; Referring Provider Internal Medicine; Visit Provider Internal Medicine
DX: S33.4XXD Traumatic rupture of symphysis pubis, subsequent encounter (principal); E55.9 Vitamin D deficiency, unspecified; F32.A Depression, unspecified; I10 Essential (primary) hypertension; K44.9 Diaphragmatic hernia without obstruction or gangrene; F41.9 Anxiety disorder, unspecified; K21.9 Gastro-esophageal reflux disease without esophagitis; E78.00 Pure hypercholesterolemia, unspecified; M62.89 Other specified disorders of muscle; R73.9 Hyperglycemia, unspecified; Z87.891 Personal history of nicotine dependence; Z79.899 Other long term (current) drug therapy; Z98.1 Arthrodesis status; V80.010D Animal-rider injured by fall from or being thrown from horse in noncollision accident, subsequent encounter; R39.11 Hesitancy of micturition; Z85.038 Personal history of other malignant neoplasm of large intestine; Z90.49 Acquired absence of other specified parts of digestive tract
CPT/HCPCS: 36415; 72192; 80053; 81001; 82306; 83036; 83735; 84100; 85027; 87077; 87086; 87088; 87186; 94668; 97110; 97116; 97162; 97166; 97530; 97535; 97542; 97802; 97803